=== PATIENT | female | born 1995 | race Caucasian/White ===

== ENCOUNTER → 2017-04-02 | Outpatient (CLI) | payer SELFPAY ==
--- NOTE | 2017-04-02 17:35 | RADIOLOGY REPORT (SQ) ---
EXAM DESCRIPTION: U/S OB 14+ TRNABD 1GES W/O DOP COMPLETED DATE/TIME: 04/02/2017 3:58 pm REASON FOR STUDY: Z34.82 ENCOUNTER FOR SUPRVSN OF NORMAL , SECOND TRIMESTER Z34.82 ENCOUNT ER FOR SUPRVSN OF NORMAL , SECOND TRI COMPARISON: No previous TECHNIQUE: Static and Dynamic grayscale imaging performed of gravid uterus using transabdominal appr oach. Additional selected color Doppler and spectral images recorded. All stored on PACS. LIMITATIONS: None. FINDINGS: EGA: 26 weeks 5 days MAHSA: 07/04/2017 EFW: 913 g PERCENTILE: 58 percentile SEVERO: Largest pocket 4.5 cm PLACENTA: Anterior. GRADE: I PRESENTATION: Cephalic. ANATOMY: HEART RATE: 153 beats per minute. FOUR CHAMBER HEART: Visualized. THREE VESSEL CORD: Yes. CORD INSERTION: Visualized. KIDNEYS AND BLADDER: Visualized. Appear normal. STOMACH: Visualized. Appears normal. SPINE: Not well seen due to size BRAIN AND LATERAL VENTRICLES: Visualized. Appear normal. OTHER: No other significant finding. MATERNAL ADNEXA: Maternal ovaries not visualized. CERVICAL LENGTH: 2.5 cm Closed. OTHER: No other significant finding. IMPRESSION: LIVING INTRAUTERINE . ESTIMATED GESTATIONAL AGE 26 weeks 5 days NO VISUALIZED ANOMALIES. Trimester of : Second trimester - 13 weeks 1 day to 27 weeks 6 days. TECHNICAL DOCUMENTATION: JOB ID: [id number] [employer]- All Rights Reserved
== END ==
LOC: RAD 14:57
PROVIDERS: ATTEND Nurse Practitioner Women's Health
DX: Z34.82 Encounter for supervision of other normal pregnancy, second trimester (principal)
CPT/HCPCS: 76805

== ENCOUNTER 2017-06-13 17:45 | Observation (INO) | payer MEDICAID ==
[2017-06-13 18:26] LABS: APPEARANCE,URINE CLOUDY; BILIRUBIN,URINE NEGATIVE (NEGATIVE); COLOR,URINE AMBER; GLUCOSE, URINE NEGATIVE (NEGATIVE); KETONES,URINE NEGATIVE (NEGATIVE); LEUKOCYTE ESTERASE,URINE LARGE (NEGATIVE); NITRITE,URINE POSITIVE (NEGATIVE); PROTEIN,URINE 30 mg/dL (NEGATIVE); URINE SPECIFIC GRAVITY 1.016
[2017-06-13 18:46] LABS: URINE AMPHETAMINES SCREEN NEGATIVE; URINE BARBITURATES SCREEN NEGATIVE; URINE BENZODIAZEPINES SCREEN NEGATIVE; URINE COCAINE SCREEN NEGATIVE; URINE MARIJUANA (THC) SCREEN NEGATIVE; URINE METHADONE SCREEN NEGATIVE; URINE PHENCYCLIDINE SCREEN NEGATIVE
[2017-06-13] MEDS ORDERED: RINGERS SOLUTION,LACTATED 1,000 ML IV PRN (19:11)
[2017-06-13] MEDS ORDERED: CEFTRIAXONE INJ 1000 MG VIAL ONE (19:24)
[2017-06-13] MEDS ORDERED: CEFTRIAXONE 1 GM/D5W RTU 1 GM/50 ML RTUPB IV ONE (20:00)
[2017-06-13 21:27] LABS: ABSOLUTE LYMPHOCYTES (AUTO) 1.1 10^3/uL (0.5-4.7); BASOPHILS % (AUTO) 0.4 % (0-2); EOSINOPHILS % (AUTO) 0.5 % (0-6); HEMATOCRIT 28.7 % (36.0-47.0); HEMOGLOBIN 9.3 g/dL (12.0-15.5); LYMPHOCYTES % (AUTO) 12.4 % (13-45); MEAN CORPUSCULAR HEMOGLOBIN 23.9 pg (27.0-33.4); MEAN CORPUSCULAR HGB CONC 32.6 g/dL (32.0-36.0); MEAN CORPUSCULAR VOLUME 73 fl (80-97); MONOCYTES % (AUTO) 10.7 % (3-13); PLATELET COUNT 256 10^3/uL (150-450); RED BLOOD COUNT 3.91 10^6/uL (3.72-5.28); RED CELL DISTRIBUTION WIDTH 15.9 % (11.5-14.0); TOTAL CELLS COUNTED % (AUTO) 100 %; WHITE BLOOD COUNT 9.2 10^3/uL (4.0-10.5)
[2017-06-13 23:07] LABS: CHLAM PCR NOT DETECTED (NOT DETECT); GON PCR NOT DETECTED (NOT DETECT)
[2017-06-14 09:17] LABS: ABSOLUTE EOSINOPHILS # (AUTO) 0.1 10^3/uL (0.0-0.6); ABSOLUTE LYMPHOCYTES (AUTO) 1.4 10^3/uL (0.5-4.7); ABSOLUTE NEUT (AUTO) 5.4 10^3/uL (1.7-8.2); BASOPHILS % (AUTO) 0.4 % (0-2); EOSINOPHILS % (AUTO) 0.9 % (0-6); HEMATOCRIT 25.3 % (36.0-47.0); HEMOGLOBIN 8.4 g/dL (12.0-15.5); LYMPHOCYTES % (AUTO) 18.1 % (13-45); MEAN CORPUSCULAR VOLUME 73 fl (80-97); MONOCYTES % (AUTO) 13.1 % (3-13); PLATELET COUNT 197 10^3/uL (150-450); RED BLOOD COUNT 3.48 10^6/uL (3.72-5.28); RED CELL DISTRIBUTION WIDTH 16.1 % (11.5-14.0); SEGMENTED NEUTROPHILS % (AUTO) 67.5 % (42-78); TOTAL CELLS COUNTED % (AUTO) 100 %
[2017-06-14] MEDS ORDERED: CEFTRIAXONE 1 GM/D5W RTU 1 GM/50 ML RTUPB IV SCH (12:00)
[2017-06-14] MEDS ORDERED: ONDANSETRON 4 MG TAB.RAPDIS PO PRN (12:02)
--- NOTE | 2017-06-14 12:06 | L&D Progress Notes ---
PROGRESS NOTES Datetime Report Generated by CPN: 06/14/2017 12:05 PROGRESS NOTE Impression: Labor Vital Signs : Reviewed; Within Normal Limits Comment: Admitted for observation due to labore with suspected complicated UTI. Afebrile - no e/o pyelo. Gram Neg Rods on prelim culture. Will cont Q12 abx today and consider discharge tomorrow. Pt with cervical change by same examiner this am. Irregular ctx. Due to concern for delivery and progression to Pyelo will continue to monitor overnight. VAGINAL EXAM Dilatation: 4 Dilatation: 4 Effacement: 70 Effacement: 50 Station: -1 Station: -2 Contractions: Occasional MEMBRANES Membranes: Intact FETUS A FHR - Baseline: 120 Monitoring: External US Variability: Moderate 6-25bpm Accelerations: 15X15 Decelerations: None FHR Category: Category I Presentation: Vertex SIGNATURE SIGNATURE: [id number] Signature: with User ID: [email or web address]
[2017-06-14] MEDS ORDERED: CEFTRIAXONE INJ 1000 MG VIAL ONE (12:18)
[2017-06-14] MEDS ORDERED: CEFTRIAXONE SODIUM 1,000 MG in DEXTROSE 5%-WATER 50 ML IV ONE (13:00)
[2017-06-14] MEDS ORDERED: ZOLPIDEM TARTRATE 5 MG TABLET PO SCH (22:00)
[2017-06-14] MEDS: CEFTRIAXONE SODIUM 1,000 MG in DEXTROSE 5%-WATER 50 ML IV SCH (22:53)
--- NOTE | 2017-06-15 08:22 | Admission Physical ---
Datetime Report Generated by CPN: 06/15/2017 08:22 Hx Assessment: The History has been Reviewed and is Current Chief Complaint: Signs/Symptoms UTI; Other Chief Complaint Other: Vaginal pressure Indication for Induction: Not Applicable Indication for Induction: , Intrauterine Admit Impression- Other: labor, UTI Admit Plan: Observation/Evaluation Medication Allergies: No (Annotations: Data stored by N on behalf of user) Medication Allergies: No Medication Allergies: No Known Allergies (06/13/2017) Medication Allergies: No Known Allergies (12/08/2012) Latex: No Latex Allergies (Annotations: Data stored by N on behalf of user) Latex: No Latex Allergies Food Allergies: N/A Environmental Allergies: N/A EDC: 07/13/2017 00:00 : 2 Para: 1 Term: 0 : 0 SAB: 0 IAB: 0 Ectopic: 0 Livin Cesareans: 0 VBACs: 0 Multiple Births: 0 Gestational Diabetes: No Rh Sensitization: No Incompetent Cervix: No PAOLO: No Infertility: No ART Treatment: No Uterine Anomaly: No IUGR: No Hx Previous C/S: No Macrosomia: No Hx Loss/Stillborn: No PIH: No Hx : No Placenta Previa/Abruption: No Depression/PP Depression: Yes PTL/PROM: No Post Hemorrhage: No Current Procedures: Ultrasound; NST Obstetrical History Comments: G1- 2013 at 40.3 weeks, epidural G2- Current Alcohol: No Marijuana : No Cocaine: No Other Illicit Drugs: No Cigarettes: Former Smoker. 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 Surgery: No Heart Disease: No Hosp/Surgery: No Autoimmune Disorder: No Anesthetic Complications: No Kidney Disease: No Abnormal Pap Smear: No Neuro/Epilepsy: No Psychiatric Disorders: Yes Other Medical Diseases: No Hepatitis/Liver Disease: No Significant Family History: No Varicosities/Phlebitis: No Trauma/Violence : No Thyroid Dysfunction: No Medical History Comments: Depression, anxiety, OCD Gonorrhea: No Genital Herpes: No Chlamydia: No Tuberculosis: No Syphilis: No Hepatitis: No HIV/AIDS Exposure: No Rash or Viral Illness: No HPV: No General: Normal Neurologic: Normal Heart: Normal Lungs: Normal Abdomen: Normal Genitourinary Exam: Normal Pelvic Type: Adequate Vital Signs: Reviewed; Within Normal Limits Dilatation: 4 Effacement: 50 Station: -2 Contraction Comments: Occasional Membranes: Intact Monitoring: External US FHR- Baseline: 135 Variability: Moderate 6-25bpm Accelerations: 15X15 Decelerations: None FHR Category: Category I Presentation: Vertex Admit Comment: Rocephin 250mg IV x 1 dose given. If no cervical progression, consider d/c in AM on Macrobid for further treatment of UTI. Urine culture pending. IVF running. Will monitor overnight given cervical dilation. Labor and Delivery: None Pain Management: None Feeding Preference: Both Benefit of Breast Feed Discussed: Yes Circumcision: N/A Signature: with User ID: [email or web address]
[2017-06-15] MEDS: CEFTRIAXONE SODIUM 1,000 MG in DEXTROSE 5%-WATER 50 ML IV SCH (09:46)
--- NOTE | 2017-06-15 11:21 | PDOC PROGRESS REPORT ---
Subjective-OB Subjective: Post Delivery Day: 22 year old. Denies any needs at this time feeling alot better, upper back pain, no CVAT, still having irregular uc's, + FM , ready to go home Physical Exam (OB) Vital Signs: Temp Pulse Resp BP Pulse Ox 97.6 F 74 16 111/65 100 06/15/17 09:10 06/15/17 09:10 06/15/17 09:10 06/15/17 09:10 06/15/17 09:10 Intake & Output 06/14/17 06/15/17 06/16/17 06:59 06:59 06:59 Intake Total 490 Balance 490 Weight 55.2 kg - Abdomen Hernia Present: No - Genitourinary [place] exam: Other - VE = 3-4/post/vtx/-1 Objective-Diagnostic Laboratory: 06/14/17 08:50 06/13/17 21:00 Vaginal/Anorectal Group B Streptococcus Culture - Final GROUP B BETA HEMOLYTIC STREPTOCOCCUS RECOVERED 06/13/17 17:56 Clean Catch Midstream Urine Culture - Final Klebsiella Pneumoniae Assessment and Plan(PN) - Assessment and Plan (1) Urinary tract infection affecting Is this a current diagnosis for this admission?: Yes (2) labor in third trimester Qualifiers: labor delivery status: without delivery Qualified Code(s): O60.03 - labor without delivery, third trimester Is this a current diagnosis for this admission?: Yes (3) Anemia affecting Qualifiers: Trimester: unspecified trimester Qualified Code(s): O99.019 - Anemia complicating , unspecified trimester Is this a current diagnosis for this admission?: Yes - Time Spent with Patient Time with patient: Less than 15 minutes Medications reviewed and adjusted accordingly: Yes - Disposition Anticipated Discharge: Home Within: Other - home today
--- NOTE | 2017-06-15 11:24 | PDOC DISCHARGE SUMMARY ---
Final Diagnosis Discharge Date: 06/15/17 - Final Diagnosis (1) Urinary tract infection affecting Is this a current diagnosis for this admission?: Yes (3) Anemia affecting Is this a current diagnosis for this admission?: Yes Discharge Data - Discharge Medication Home Medications: Vit/Iron Fumarate/FA [ Plus Tablet] 1 tab PO DAILY 04/03/13 Guaifenesin [Mucinex] 100 mg PO PRN PRN 06/13/17 - Diagnosis Test Laboratory: Temp Pulse Resp BP Pulse Ox 97.6 F 74 16 111/65 100 06/15/17 09:10 06/15/17 09:10 06/15/17 09:10 06/15/17 09:10 06/15/17 09:10 06/13/17 06/13/17 06/14/17 17:56 21:13 08:50 RBC 3.91 3.48 L Hgb 9.3 L 8.4 L Hct 28.7 L 25.3 L Urine Opiates Screen NEGATIVE - Discharge information/Instructions Discharge Activity: Activity As Tolerated Discharge Diet: As Tolerated, Regular Disposition: HOME, SELF-CARE Follow up with: [facility] in: 1, Days - Keep appt at [facility] on Thursday, Rx for Macrobid 100 BID x 7 days, urine culture sensitive to Macrobid
[2017-06-15 12:53] VITALS: BP 109/52
== END 2017-06-15 14:10 | disposition home or self-care (01) ==
LOC: LC 17:45 → LR 20:55 → OBSVTOIN 06-14 12:09 → INTOOBSV 06-14 12:09 → 2N 06-14 12:55
PROVIDERS: ADMIT Obstetrics & Gynecology; ATTEND Obstetrics & Gynecology
PROC: 4A0HXCZ Measurement of Products of Conception, Cardiac Rate, External Approach (ICD-10-PCS; principal; 2017-06-14)
DX: O60.03 Preterm labor without delivery, third trimester (principal); O23.43 Unspecified infection of urinary tract in pregnancy, third trimester; B96.1 Klebsiella pneumoniae [K. pneumoniae] as the cause of diseases classified elsewhere; O99.013 Anemia complicating pregnancy, third trimester; Z87.891 Personal history of nicotine dependence; Z3A.35 35 weeks gestation of pregnancy
CPT/HCPCS: 59025 ×2; 36415 ×2; 87086; 85025 ×2; 87088; 81001; 87081; 87186; 80307; 87491; 87591; 94799; G0378 ×2; G0379; J0696 ×3

== ENCOUNTER 2017-06-18 17:07 | Outpatient (CLI) | payer MEDICAID ==
--- NOTE | 2017-06-18 17:11 | Non Stress Test Report ---
Non Stress Test Datetime Report Generated by CPN: 06/18/2017 17:11 DEMOGRAPHIC EGA NST: 35.6 EGA NST: 35.5 INDICATION Indication for Study: Ordered by Provider Indication for Study: Ordered by Provider MONITORING Monitor Explained: Monitor Explained; Test Explained; Patient Verbalized Understanding Monitor Explained: Monitor Explained; Test Explained; Patient Verbalized Understanding Time on Monitor: 06/14/2017 11:14 Time on Monitor: 06/13/2017 18:07 Time off Monitor: 06/14/2017 11:49 Time off Monitor: 06/13/2017 19:28 NST Duration: 35 NST Duration: 81 NST INTERVENTIONS NST Interventions: PO Hydration; Reposition Patient NST Interventions: PO Hydration; Reposition Patient Physician Notified NST: Dr. Kaufman Physician Notified NST: Dr. Wetzel BABY A: [id number] BABY A Movement : Present Movement : Present Contraction Frequency : Irregular with irritability Contraction Frequency : irregular with irritability FHR Baseline : 125 FHR Baseline : 125 Accelerations : 15X15 Accelerations : 15X15 Decelerations : None Decelerations : None Variability : Moderate 6-25bpm Variability : Moderate 6-25bpm NST Review: Meets Criteria for Reactive NST NST Review: Meets Criteria for Reactive NST NST Review and Verified By : Tiffanie Martinez RN NST Review and Verified By : Tiffanie Martinez RN NST Results: Reactive NST Results: Reactive NST REPORT Report Trigger: Send Report
--- NOTE | 2017-06-18 18:06 | Non Stress Test Report ---
Non Stress Test Datetime Report Generated by CPN: 06/18/2017 18:06 DEMOGRAPHIC EGA NST: 36.3 INDICATION Indication for Study: Decreased Movement; Ordered by Provider Indication for Study (NST) Other: LC MONITORING Monitor Explained: Monitor Explained; Test Explained; Patient Verbalized Understanding Time on Monitor: 06/18/2017 17:43 Time off Monitor: 06/18/2017 18:03 NST Duration: 20 NST INTERVENTIONS NST Interventions: PO Hydration; Reposition Patient Physician Notified NST: Dr. Altaf BABY A Movement : Present Contraction Frequency : irr FHR Baseline : 125 Accelerations : 15X15 Decelerations : None Variability : Moderate 6-25bpm NST Review: Meets Criteria for Reactive NST NST Review and Verified By : Aura Arreola RN NST Results: Reactive NST REPORT Report Trigger: Send Report
[2017-06-18 18:47] LABS: APPEARANCE,URINE SLIGHTLY-CLOUDY; BILIRUBIN,URINE NEGATIVE (NEGATIVE); COLOR,URINE YELLOW; GLUCOSE, URINE NEGATIVE (NEGATIVE); KETONES,URINE NEGATIVE (NEGATIVE); LEUKOCYTE ESTERASE,URINE NEGATIVE (NEGATIVE); NITRITE,URINE NEGATIVE (NEGATIVE); PROTEIN,URINE NEGATIVE (NEGATIVE); URINE SPECIFIC GRAVITY 1.017; UROBILINOGEN,URINE NEGATIVE mg/dL (<2.0)
[2017-06-18 19:05] LABS: URINE AMPHETAMINES SCREEN NEGATIVE; URINE BARBITURATES SCREEN NEGATIVE; URINE BENZODIAZEPINES SCREEN NEGATIVE; URINE COCAINE SCREEN NEGATIVE; URINE MARIJUANA (THC) SCREEN NEGATIVE; URINE METHADONE SCREEN NEGATIVE; URINE PHENCYCLIDINE SCREEN NEGATIVE
== END 2017-06-18 18:15 | disposition home or self-care (01) ==
LOC: LC 17:07
PROVIDERS: ATTEND Obstetrics & Gynecology
PROC: 4A1HXCZ Monitoring of Products of Conception, Cardiac Rate, External Approach (ICD-10-PCS; principal; 2017-06-18)
DX: O36.8130 Decreased fetal movements, third trimester, not applicable or unspecified (principal); Z3A.36 36 weeks gestation of pregnancy
CPT/HCPCS: 59025; 80307; 81001

== ENCOUNTER 2017-06-28 17:38 | Inpatient (IN) | payer MEDICAID ==
[2017-06-28] MEDS ORDERED: RINGERS SOLUTION,LACTATED 1,000 ML IV PRN (18:20)
[2017-06-28 18:23] LABS: APPEARANCE,URINE SLIGHTLY-CLOUDY; BILIRUBIN,URINE NEGATIVE (NEGATIVE); COLOR,URINE YELLOW; GLUCOSE, URINE NEGATIVE (NEGATIVE); KETONES,URINE 20 mg/dL (NEGATIVE); LEUKOCYTE ESTERASE,URINE MODERATE (NEGATIVE); NITRITE,URINE NEGATIVE (NEGATIVE); PROTEIN,URINE NEGATIVE (NEGATIVE); URINE SPECIFIC GRAVITY 1.014; UROBILINOGEN,URINE NEGATIVE mg/dL (<2.0)
[2017-06-28] MEDS ORDERED: MISOPROSTOL 0.2 MG TABLET ONE (18:25)
[2017-06-28] MEDS ORDERED: PENICILLIN G-K 5 MILLION UNIT VIAL ONE (18:25)
[2017-06-28] MEDS ORDERED: FENTANYL/BUPIVACAINE/NS/PF 200 MCG/100 ML RTUINJ EPI ONE (18:26)
[2017-06-28] MEDS ORDERED: OXYTOCIN/NORMAL SALINE 20 UNIT/1,000 ML RTUINJ ONE (18:26)
[2017-06-28] MEDS ORDERED: EPHEDRINE SULFATE INJ 50 MG/1 ML AMPULE ONE (18:26)
[2017-06-28] MEDS ORDERED: LIDOCAINE 1% INJ-PF (10 MG/ML) 30 ML SDV ONE (18:26)
[2017-06-28] MEDS ORDERED: BUPIVACAINE HCL 0.25 % INJ/PF (2.5 MG/1 ML) 30 ML VIAL ONE (18:26)
[2017-06-28 18:33] LABS: ABSOLUTE BASOPHILS # (AUTO) 0.1 10^3/uL (0.0-0.2); ABSOLUTE LYMPHOCYTES (AUTO) 1.1 10^3/uL (0.5-4.7); ABSOLUTE MONOCYTES (AUTO) 0.8 10^3/uL (0.1-1.4); ABSOLUTE NEUT (AUTO) 10.5 10^3/uL (1.7-8.2); BASOPHILS % (AUTO) 0.5 % (0-2); EOSINOPHILS % (AUTO) 0.4 % (0-6); HEMATOCRIT 31.8 % (36.0-47.0); HEMOGLOBIN 9.9 g/dL (12.0-15.5); MEAN CORPUSCULAR HEMOGLOBIN 22.3 pg (27.0-33.4); MEAN CORPUSCULAR HGB CONC 31.3 g/dL (32.0-36.0); MEAN CORPUSCULAR VOLUME 71 fl (80-97); MONOCYTES % (AUTO) 6.3 % (3-13); PLATELET COUNT 288 10^3/uL (150-450); RED BLOOD COUNT 4.46 10^6/uL (3.72-5.28); RED CELL DISTRIBUTION WIDTH 16.7 % (11.5-14.0); SEGMENTED NEUTROPHILS % (AUTO) 83.8 % (42-78); TOTAL CELLS COUNTED % (AUTO) 100 %; WHITE BLOOD COUNT 12.5 10^3/uL (4.0-10.5)
[2017-06-28 18:53] LABS: URINE AMPHETAMINES SCREEN NEGATIVE; URINE BARBITURATES SCREEN NEGATIVE; URINE BENZODIAZEPINES SCREEN NEGATIVE; URINE COCAINE SCREEN NEGATIVE; URINE MARIJUANA (THC) SCREEN NEGATIVE; URINE METHADONE SCREEN NEGATIVE; URINE PHENCYCLIDINE SCREEN NEGATIVE
[2017-06-28] MEDS ORDERED: RINGERS SOLUTION,LACTATED 1,000 ML IV ONE (19:00)
[2017-06-28] MEDS ORDERED: PENICILLIN G POTASSIUM 5,000,000 UNIT in DEXTROSE 5%-WATER 100 ML IV ONE (19:00)
[2017-06-28] MEDS ORDERED: PSEUDOEPHEDRINE HCL 30 MG TABLET PO PRN (21:34)
[2017-06-28] MEDS ORDERED: DIBUCAINE 1% OINTMENT 28 GM TP PRN (21:34)
[2017-06-28] MEDS ORDERED: ZOLPIDEM TARTRATE 5 MG TABLET PO PRN (21:34)
[2017-06-28] MEDS ORDERED: ACETAMINOPHEN 650 MG SUPP.RECT PR PRN (21:34)
[2017-06-28] MEDS ORDERED: DIPH/PERTUSS(ACELL)/TETANUS VAC/PF 0.5 ML SYR (>=10YO) IM PRN (21:34)
[2017-06-28] MEDS ORDERED: NA PHOS,M-B/NA PHOS,DI-BA (ADULT) 133 ML ENEMA PR PRN (21:34)
[2017-06-28] MEDS ORDERED: BENZOCAINE/MENTHOL AEROSOL SPRAY 56 ML TOP PRN (21:34)
[2017-06-28] MEDS ORDERED: GLYCERIN/WITCH HAZEL LEAF 1 EACH MED..PAD TP PRN (21:34)
[2017-06-28] MEDS ORDERED: OXYTOCIN/NORMAL SALINE 20 UNIT/1,000 ML RTUINJ IV PRN (21:34)
[2017-06-28] MEDS ORDERED: PROMETHAZINE HCL 25 MG SUPP.RECT PR PRN (21:34)
[2017-06-28] MEDS ORDERED: PROMETHAZINE HCL INJ 25 MG/1 ML VIAL IV PRN (21:34)
[2017-06-28] MEDS ORDERED: PROMETHAZINE HCL 25 MG TABLET PO PRN (21:34)
[2017-06-28] MEDS ORDERED: MAGNESIUM HYDROXIDE SUSP 30 ML UDCUP PO PRN (21:34)
[2017-06-28] MEDS ORDERED: ACETAMINOPHEN WITH CODEINE #3 TABLET PO PRN ×2 (21:34)
[2017-06-28] MEDS ORDERED: DIPHENHYDRAMINE HCL 25 MG CAPSULE PO PRN (21:34)
[2017-06-28] MEDS ORDERED: MEASLES,MUMPS&RUBELLA VACC/PF 0.5 ML VIAL SUBCUT PRN (21:34)
--- NOTE | 2017-06-28 22:19 | Delivery Summary ---
Del Sum A-C Datetime Report Generated by CPN: 06/28/2017 22:19 DELIVERY PERSONNEL DELIVERY PERSONNEL: [id number] Delivery Doctor:: Angeles Solitario MD Labor and Delivery Nurse:: Rosie Sanches RN Labor and Delivery Nurse:: Katia Rodriguez RN Measuring Machine Operator/DIFFERENTIAL REPAIRER: Serene Terryzgerald, ST MATERNAL INFORMATION Delivery Anesthesia: Epidural Medications After Delivery: Pitocin Bolus-Please Comment; Pitocin Drip 20 Units/1000ml NSS Meds After Delivery Comment: NS with Pitocin 20 units/liter ivf bolus Estimated Blood Loss (ml): 150 Maternal Complications: None LABOR SUMMARY EDC: 07/13/2017 00:00 No. Babies in Womb: 1 Attempted: No Labor Anesthesia: Epidural LABOR INFORMATION Reason for Induction: Not Applicable Onset of Labor: 06/28/2017 08:00 Complete Dilatation: 06/28/2017 20:57 Oxytocin: N/A Group B Beta Strep: positive Antibiotics # of Doses: 1 Antibiotics Time of Last Dose: PCN Name of Antibiotic Given: 1807 Steroids Given: None Reason Steroids Not Administered: Not Applicable MEMBRANES Membranes Rupture Method: Spontaneous Rupture of Membranes: 06/28/2017 19:44 Length of Rupture (hr): 1.50 Amniotic Fluid Color: Clear Amniotic Fluid Amount: Moderate Amniotic Fluid Odor: Normal STAGES OF LABOR Stage 1 hr: 12 Stage 1 min: 57 Stage 2 hr: 0 Stage 2 min: 17 Stage 3 hr: 0 Stage 3 min: 1 Total Time in Labor hr: 13 Total Time in Labor min: 15 VAGINAL DELIVERY Episiotomy: None Laceration #1: None Laceration Extension #1: N/A Laceration Repair: Not Applicable Sponge Count Correct: N/A CSECTION DELIVERY Primary Indication: N/A Secondary Indication: N/A CSection Incidence: N/A Labor: N/A Elective: N/A BABY A INFORMATION Delivery Date/Time: 06/28/2017 21:14 Method of Delivery: Vaginal Born in Route : No : N/A Forceps: N/A Vacuum Extraction: N/A Shoulder Dystocia : No PRESENTATION/POSITION BABY A Presentation: Cephalic Cephalic Presentation: Vertex Vertex Position: Left Occipital Anterior left compoud hand Breech Presentation: N/A PLACENTA INFORMATION BABY A Placenta Delivery Time : 06/28/2017 21:15 Placenta Method of Delivery: Spontaneous Placenta Status: Delivered SCORES BABY A Heart Rate 1 min: >100 bpm Resp Effort 1 min: Good Cry Reflex Irritability 1 min: Cough or Sneeze or Pulls Away Muscle Tone 1 min: Active Motion Color 1 min: Body [place], Extremities Blue Resuscitation Effort 1 min: Tactile Stimulation SCORE 1 MIN: 9 Heart Rate 5 min: >100 bpm Resp Effort 5 min: Good Cry Reflex Irritability 5 min: Cough or Sneeze or Pulls Away Muscle Tone 5 min: Active Motion Color 5 min: Body [place], Extremities Blue Resuscitation Effort 5 min: Tactile Stimulation SCORE 5 MIN: 9 INFANT INFORMATION BABY A Gestational Age at Delivery: 37.6 Gestational Status: Early Term- 37- 38.6 Weeks Outcome : Liveborn Infant Condition : Stable Sex: Female IDENTIFICATION BABY A Infant Verification Date/Time: 06/28/2017 21:55 ID Band Number: [id number] Mother's Name Verified: Yes RN Verifying Infant: Nury Thompson RN/ T Sanches RN WEIGHT/LENGTH BABY A Birthweight (gm): 3300 Weight (lb): 7 Infant Weight (oz): 4 Infant Length (in): 19.75 Infant Length (cm): 50.17 CORD INFORMATION BABY A No. Cord Vessels: 3 Nuchal Cord : N/A Cord Blood Taken: Yes-For Storage (Mom's Blood type +) Infant Suction: Mouth; Nose ASSESSMENT BABY A Complications: None Physical Findings at Delivery: Within Normal Limits Respirations: Appears Normal Skin to Skin: Yes Skin to Skin Time (min): 45 Instrument Checker/ALS Called : No Care By: michaelle cailin Transferred To: Remains with Mother BABY B INFORMATION : N/A SIGNATURES Signature: with User ID: [email or web address]
--- NOTE | 2017-06-28 23:18 | Admission Physical ---
Datetime Report Generated by CPN: 06/28/2017 23:18 CURRENT ADMISSION Hx Assessment: The History has been Reviewed and is Current Chief Complaint: Uterine Contractions Chief Complaint: Uterine Contractions Chief Complaint: Signs/Symptoms UTI; Other Chief Complaint Other: Vaginal pressure Indication for Induction: Not Applicable Indication for Induction: Not Applicable Indication for Induction: Not Applicable Indication for Induction: Term, Intrauterine ; Active Labor Indication for Induction: Term, Intrauterine ; Active Labor Indication for Induction: , Intrauterine Admit Impression- Other: labor, UTI Admit Plan: Admit to Unit; Initiate Labor Induction Protocol Admit Plan: Admit to Unit; Initiate Labor Protocol Admit Plan: Observation/Evaluation ALLERGIES Medication Allergies: No (Annotations: Data stored by CPN on behalf of user) Medication Allergies: No Medication Allergies: No Known Allergies (06/18/2017) Medication Allergies: No Known Allergies (06/13/2017) Medication Allergies: No Known Allergies (12/08/2012) Latex: No Latex Allergies (Annotations: Data stored by CPN on behalf of user) Latex: No Latex Allergies Food Allergies: N/A Environmental Allergies: N/A OBSTETRICAL HISTORY EDC: 07/13/2017 00:00 : 2 Para: 1 Term: 0 : 0 SAB: 0 IAB: 0 Ectopic: 0 Livin Cesareans: 0 VBACs: 0 Multiple Births: 0 Gestational Diabetes: No Rh Sensitization: No Incompetent Cervix: No PAOLO: No Infertility: No ART Treatment: No Uterine Anomaly: No IUGR: No Hx Previous C/S: No Macrosomia: No Hx Loss/Stillborn: No PIH: No Hx : No Placenta Previa/Abruption: No Depression/PP Depression: Yes PTL/PROM: No Post Hemorrhage: No Current Procedures: Ultrasound; NST Obstetrical History Comments: G1- 2013 at 40.3 weeks, epidural G2- Current SEE RECORDS Alcohol: No Marijuana : No Cocaine: No Other Illicit Drugs: No Cigarettes: Former Smoker. [id number] MEDICAL HISTORY Diabetes: No Blood Transfusion: No Pulmonary Disease (Asthma, TB): No Breast Disease: No Hypertension: No Rn Supplemental Surgery: No Heart Disease: No Hosp/Surgery: No Autoimmune Disorder: No Anesthetic Complications: No Kidney Disease: No Abnormal Pap Smear: No Neuro/Epilepsy: No Psychiatric Disorders: Yes Other Medical Diseases: No Hepatitis/Liver Disease: No Significant Family History: No Varicosities/Phlebitis: No Trauma/Violence : No Thyroid Dysfunction: No Medical History Comments: Depression, anxiety, OCD INFECTIOUS HISTORY Gonorrhea: No Genital Herpes: No Chlamydia: No Tuberculosis: No Syphilis: No Hepatitis: No HIV/AIDS Exposure: No Rash or Viral Illness: No HPV: No PHYSICAL EXAM General: Normal General: Normal General: Normal HEENT: Normal HEENT: Normal Neurologic: Normal Neurologic: Normal Neurologic: Normal Thyroid: Normal Thyroid: Normal Heart: Normal Heart: Normal Heart: Normal Lungs: Normal Lungs: Normal Lungs: Normal Breast: Normal Breast: Normal Back: Normal Back: Normal Abdomen: Normal Abdomen: Normal Abdomen: Normal Genitourinary Exam: Normal Genitourinary Exam: Normal Genitourinary Exam: Normal Extremities: Normal Extremities: Normal DTRs: Normal DTRs: Normal Pelvic Type: Adequate Pelvic Type: Adequate Pelvic Type: Adequate Vital Signs: Reviewed Vital Signs: Reviewed Vital Signs: Reviewed; Within Normal Limits VAGINAL EXAM Dilatation: 6 Dilatation: 4 Dilatation: 4 Effacement: 80 Effacement: 70 Effacement: 50 Station: -1 Station: -1 Station: -2 Contraction Comments: Occasional MEMBRANES Pooling: Negative Membranes: Intact Membranes: Intact FETUS A EGA: 37.6 EGA: 35.6 EGA: 35.5 Monitoring: External US Monitoring: External US FHR- Baseline: 145 FHR- Baseline: 135 Variability: Moderate 6-25bpm Variability: Moderate 6-25bpm Accelerations: 15X15 Accelerations: 15X15 Decelerations: None Decelerations: None FHR Category: Category I FHR Category: Category I Estimated Weight (gm): 3500 Presentation: Vertex Presentation: Vertex Admit Comment: Rocephin 250mg IV x 1 dose given. If no cervical progression, consider d/c in AM on Macrobid for further treatment of UTI. Urine culture pending. IVF running. Will monitor overnight given cervical dilation. PLANS FOR LABOR AND DELIVERY Labor and Delivery: None Pain Management: Epidural Feeding Preference: Formula Benefit of Breast Feed Discussed: Yes Circumcision: N/A INFORMED CONSENT Signature: with User ID: Jo Signature: with User ID: Vince : with User ID: Vince
[2017-06-29] MEDS: PENICILLIN G POTASSIUM 2,500,000 UNIT in DEXTROSE 5%-WATER 50 ML IV SCH ×2 (00:19→06:02)
[2017-06-29] MEDS: FAMOTIDINE 20 MG TABLET PO SCH ×3 (00:19→21:27)
[2017-06-29] MEDS: IBUPROFEN 800 MG TABLET PO SCH ×4 (00:19→21:27)
[2017-06-29 07:58] LABS: HEMATOCRIT 28.1 % (36.0-47.0); HEMOGLOBIN 9.3 g/dL (12.0-15.5); MEAN CORPUSCULAR HEMOGLOBIN 23.1 pg (27.0-33.4); MEAN CORPUSCULAR VOLUME 70 fl (80-97); PLATELET COUNT 296 10^3/uL (150-450); RED BLOOD COUNT 4.01 10^6/uL (3.72-5.28); RED CELL DISTRIBUTION WIDTH 16.6 % (11.5-14.0); WHITE BLOOD COUNT 15.6 10^3/uL (4.0-10.5)
--- NOTE | 2017-06-29 09:06 | PDOC PROGRESS REPORT ---
Subjective-OB Subjective: Post Delivery Day:1 22 year old. Denies any needs at this time, states lochia is stable, pain well controlled, voiding without difficulty. Physical Exam (OB) Vital Signs: Temp Pulse Resp BP Pulse Ox 98.4 F 82 14 108/69 99 06/29/17 07:56 06/29/17 07:56 06/29/17 07:56 06/29/17 07:56 06/29/17 07:56 Intake & Output 06/28/17 06/29/17 06/30/17 06:59 06:59 06:59 Weight 56.1 kg - Lochia Lochia Amount: Small 10-25 ml Lochia Color: Rubra/Red - Abdomen Description: Soft, Round Hernia Present: No Fundal Description: Firm, Midline Fundal Height: u/u - u/2 Objective-Diagnostic Laboratory: 06/29/17 07:41 06/28/17 06/28/17 06/28/17 17:49 18:16 18:16 WBC 12.5 H RBC 4.46 Hgb 9.9 L Hct 31.8 L MCV 71 L MCH 22.3 L MCHC 31.3 L RDW 16.7 H Plt Count 288 Seg Neutrophils % 83.8 H Lymphocytes % 9.0 L Monocytes % 6.3 Eosinophils % 0.4 Basophils % 0.5 Absolute Neutrophils 10.5 H Absolute Lymphocytes 1.1 Absolute Monocytes 0.8 Absolute Eosinophils 0.0 Absolute Basophils 0.1 Urine Color YELLOW Urine Appearance SLIGHTLY-CLOUDY Urine pH 7.0 Ur Specific [place] 1.014 Urine Protein NEGATIVE Urine Glucose (UA) NEGATIVE Urine Ketones 20 H Urine Blood NEGATIVE Urine Nitrite NEGATIVE Ur Leukocyte Esterase MODERATE H Blood Type B POSITIVE Antibody Screen NEGATIVE 06/29/17 07:41 WBC 15.6 H RBC 4.01 Hgb 9.3 L Hct 28.1 L MCV 70 L MCH 23.1 L MCHC 33.0 RDW 16.6 H Plt Count 296 Seg Neutrophils % Lymphocytes % Monocytes % Eosinophils % Basophils % Absolute Neutrophils Absolute Lymphocytes Absolute Monocytes Absolute Eosinophils Absolute Basophils Urine Color Urine Appearance Urine pH Ur Specific [place] Urine Protein Urine Glucose (UA) Urine Ketones Urine Blood Urine Nitrite Ur Leukocyte Esterase Blood Type Antibody Screen Assessment and Plan(PN) - Assessment and Plan (1) Vaginal delivery Is this a current diagnosis for this admission?: Yes Plan: routine pp care (2) Anemia affecting Qualifiers: Trimester: third trimester Qualified Code(s): O99.013 - Anemia complicating , third trimester Is this a current diagnosis for this admission?: Yes Plan: ferrous sulfate increase dietary iron - Time Spent with Patient Time with patient: Less than 15 minutes Critical Time spent with patient: Less than 15 minutes Medications reviewed and adjusted accordingly: Yes - Disposition Anticipated Discharge: Home Within: within 24 hours
[2017-06-29] MEDS: PRENATAL VITAMIN W DHA CAPSULE PO SCH (10:15)
[2017-06-29] MEDS: FERROUS SULFATE 325 MG TABLET PO SCH ×2 (10:15→17:50)
[2017-06-29] MEDS: DOCUSATE SODIUM 100 MG CAPSULE PO SCH ×2 (10:15→17:50)
[2017-06-29] MEDS: SENNOSIDES/DOCUSATE 8.6-50 MG 1 EACH TABLET PO SCH (10:16)
[2017-06-30] MEDS: IBUPROFEN 800 MG TABLET PO SCH ×2 (05:21→13:59)
[2017-06-30] MEDS ORDERED: ACETAMINOPHEN 325 MG TABLET ONE (09:10)
[2017-06-30] MEDS ORDERED: ACETAMINOPHEN 325 MG TABLET PO PRN (09:13)
[2017-06-30] MEDS: FERROUS SULFATE 325 MG TABLET PO SCH ×2 (09:16→17:16)
[2017-06-30] MEDS: FAMOTIDINE 20 MG TABLET PO SCH (09:16)
[2017-06-30] MEDS: SENNOSIDES/DOCUSATE 8.6-50 MG 1 EACH TABLET PO SCH (09:16)
[2017-06-30] MEDS: DOCUSATE SODIUM 100 MG CAPSULE PO SCH ×2 (09:16→17:16)
[2017-06-30] MEDS: PRENATAL VITAMIN W DHA CAPSULE PO SCH (09:16)
[2017-06-30 21:08] VITALS: BP 110/68
== END 2017-06-30 22:25 | disposition home or self-care (01) | DRG 774 ==
LOC: LC 17:38 → LR 18:08 → 2S 23:16
PROVIDERS: ADMIT Obstetrics & Gynecology; ATTEND Obstetrics & Gynecology
PROC: 10E0XZZ Delivery of Products of Conception, External Approach (ICD-10-PCS; principal; 2017-06-28)
DX: O99.824 Streptococcus B carrier state complicating childbirth (principal); O75.3 Other infection during labor; N39.0 Urinary tract infection, site not specified; O99.344 Other mental disorders complicating childbirth; F41.8 Other specified anxiety disorders; O32.2XX0 Maternal care for transverse and oblique lie, not applicable or unspecified; O90.81 Anemia of the puerperium; D64.9 Anemia, unspecified; Z3A.37 37 weeks gestation of pregnancy; Z37.0 Single live birth
CPT/HCPCS: 36415; 80307; 81005; 85025; 85027; 86592; 86850; 86900; 86901; 90715; J2540; J2590; J3490

== ENCOUNTER 2017-09-18 14:40 | Emergency (ER) | payer MEDICAID ==
[2017-09-18] MEDS ORDERED: LIDOCAINE 1% INJ-PF (10 MG/ML) 30 ML SDV INJ ONE (15:11)
[2017-09-18] MEDS ORDERED: ACETAMINOPHEN 325 MG TABLET PO ONE (15:11)
[2017-09-18] MEDS ORDERED: LIDOCAINE 4%/TETRACAINE 0.5%/EPI 0.18% 5 ML TOPICAL SOLN TOP ONE (15:11)
--- NOTE | 2017-09-18 15:12 | ER Document Report ---
HPI - HPI Pain Level: 5 Context: Patient is a 22-year-old female presents emergency department with a chief complaint of head injury. Patient states she was putting laundry away when she hit her head on the cabinets. She denies any LOC. She admits to headache and initial dizziness which is since resolved. She denies any vomiting, altered mental status, lethargy or confusion. Patient is not on any blood thinners but admits that she is following with the doctor regarding her concern for easy bruising. She denies any blood dyscrasias in her family that she is aware of. - CONSTITUTIONAL Constitutional: DENIES: Fever, Chills - EENT EENT: DENIES: Sore Throat, Ear Pain, Eye problems - NEURO Neurology: DENIES: Headache, Weakness, Vision blurred, Dizzinesss / Vertigo - CARDIOVASCULAR Cardiovascular: DENIES: Chest pain - RESPIRATORY Respiratory: DENIES: Trouble Breathing, Coughing - GASTROINTESTINAL Gastrointestinal: DENIES: Abdominal Pain, Black / Bloody Stools - URINARY Urinary: DENIES: Dysuria, Urgency, Frequency - REPRODUCTIVE Reproductive: REPORTS: : - MUSCULOSKELETAL Musculoskeletal: DENIES: Extremity pain Past Medical History - Social History Smoking Status: Unknown if Ever Smoked Chew tobacco use (# tins/day): No Frequency of alcohol use: None Drug Abuse: None Family History: Reviewed & Not Pertinent Patient has suicidal ideation: No Patient has homicidal ideation: No Renal/ Medical History: Denies: Hx Peritoneal Dialysis - Immunizations Immunizations up to date: Yes Hx Diphtheria, Pertussis, Tetanus Vaccination: Yes Vertical Provider Document - CONSTITUTIONAL Agree With Documented VS: Yes Notes: PHYSICAL EXAM GENERAL: Alert, interacts well. HEAD: Normocephalic, 2.5 cm laceration along the lateral hairline on the right part of her forehead without active bleeding. EYES: Pupils equal, round, and reactive to light. Extraocular movements intact. ENT: Oral mucosa moist, tongue midline. NECK: Full range of motion. Supple. Trachea midline. EXTREMITIES: Moves all 4 extremities spontaneously. No edema, radial and dorsalis pedis pulses 2/4 bilaterally. No cyanosis. NEUROLOGICAL: Alert and oriented x4. Normal speech. PSYCH: Normal affect, normal mood. SKIN: Warm, dry, normal turgor. Noted ecchymosis on the back of her left thigh. No focal tenderness or deformity. - INFECTION CONTROL TRAVEL OUTSIDE OF THE [place] IN LAST 30 DAYS: No Course - Re-evaluation Re-evalutation: 09/18/17 16:32 Patient is a 22-year-old female is hemodynamically stable, no acute distress and afebrile. Presentation of head trauma in an otherwise well-appearing patient. No focal neurologic deficits on exam, no evidence of basilar skull fracture on exam without evidence of hemotympanum, raccoon eyes, or periauricular hematoma. No papilledema. Patient is not on anticoagulation. GCS is 15. No loss of consciousness. No episodes of vomiting. Patient is therefore negative via Crisp head CT criteria and CT imaging will not be obtained at this time. Wound was irrigated and closed primarily at the bedside. Patient tolerated procedure well. Will follow up with her primary care this week for suture removal and blood work results. - Vital Signs Vital signs: Temp Pulse Resp BP Pulse Ox 98.3 F 80 16 119/72 98 09/18/17 14:44 09/18/17 14:44 09/18/17 14:44 09/18/17 14:44 09/18/17 14:44 - Laboratory Result Diagrams: 09/18/17 15:40 Procedures - Laceration/Wound Repair Right Face Wound length (cm): 2.5 Wound's Depth, Shape: Linear Laceration pre-procedure: Sterile PPE donned, Betadine prep applied, Sterile drapes applied Anesthetic type: 1% Lidocaine Volume Anesthetic (mLs): 5 Wound explored: Clean Irrigated w/ Saline (mLs): 50 Wound Repaired With: Sutures Suture Size/Type: 5:0, Prolene Number of Sutures: 4 Layer Closure?: No Post-procedure wound care: Sterile dressing applied Discharge - Discharge Clinical Impression: Laceration Head injury Qualifiers: Encounter type: initial encounter Qualified Code(s): S09.90XA - Unspecified injury of head, initial encounter Condition: Good Disposition: HOME, SELF-CARE Additional Instructions: LACERATION CARE: Your laceration has been sutured to keep the skin edges aligned during healing. The time of suture removal depends on the nature and location of your cut. Please follow the care instructions the doctor has outlined for you and return for further care, according to the schedule you've been given. Keep the wound and dressing clean. Unless you were told otherwise, you may shower daily, blotting the wound dry with a clean, unused towel. At other times, If the dressing gets wet or blood soaked, remove it and blot the wound dry, then reapply a new dressing. Unless you were instructed otherwise, dressings should be changed at least daily. If any signs of infection occur (swelling, redness, drainage, increasing tenderness, red streaks, tender lumps in the armpit or groin above the laceration, or fever), see the doctor immediately. SOAP CLEANSING: Gently wash the wound daily using a mild soap (like Ivory, Phisoderm, Neutrogena). Use warm water, rubbing gently until all debris, ooze, and crusting have been washed from the wound. Allow to dry briefly (about 10 minutes) after cleaning. Repeat this cleansing at least three times a day for the first two days and then once or twice a day. ANTIBIOTIC OINTMENT PROTECTION: Your wounds are such that dressing them is not practical or optional. After cleansing, you should apply a thin coating of antibiotic ointment ( Bacitracin, not Neosporin) to the wounds at least three times daily. This lessens infection risk, and may decrease the amount of scarring. Use a q-tip or dull butter knife, not your finger, to apply this ointment. Any debris or ooze which builds up in the ointment should be gently rubbed off with a sterile gauze pad. Harder crusting may need to be gently scrubbed off with a clean wash cloth with soap and warm water, perhaps applying a warm, wet wash cloth to the wound for ten minutes first. Development of redness, severe itching, or blistering may mean allergy to the ointment. See the doctor. FOLLOW-UP CARE: Your sutures should be removed in 5-7 days. To facilitate a timely removal of your sutures, you may return to the Emergency Department at [facility]. You do not need to call for an appointment, but the best time to come in for suture removal is early in the morning. If you have been referred to another physician for follow-up care, call that physicians office for an appointment as you were instructed. If you experience a significant change in your laceration, or if you are concerned there may be an infection (swelling, redness, drainage, increasing tenderness, red streaks, tender lumps in the armpit or groin above the laceration, or fever) , return to the Emergency Department immediately re-evaluation. Prescriptions: Butalb/Acetaminophen/Caffeine [Fioricet (50-325-40 mg) Tablet] 1 tab PO Q4HP PRN #15 tab PRN Reason: Forms: Parent Work Note
[2017-09-18 15:53] LABS: ABSOLUTE EOSINOPHILS # (AUTO) 0.1 10^3/uL (0.0-0.6); ABSOLUTE LYMPHOCYTES (AUTO) 1.4 10^3/uL (0.5-4.7); ABSOLUTE MONOCYTES (AUTO) 0.5 10^3/uL (0.1-1.4); ABSOLUTE NEUT (AUTO) 3.8 10^3/uL (1.7-8.2); BASOPHILS % (AUTO) 0.4 % (0-2); EOSINOPHILS % (AUTO) 1.6 % (0-6); HEMATOCRIT 36.5 % (36.0-47.0); HEMOGLOBIN 11.9 g/dL (12.0-15.5); LYMPHOCYTES % (AUTO) 23.6 % (13-45); MEAN CORPUSCULAR HEMOGLOBIN 24.7 pg (27.0-33.4); MEAN CORPUSCULAR HGB CONC 32.7 g/dL (32.0-36.0); MEAN CORPUSCULAR VOLUME 75 fl (80-97); MONOCYTES % (AUTO) 8.1 % (3-13); PLATELET COUNT 246 10^3/uL (150-450); RED BLOOD COUNT 4.84 10^6/uL (3.72-5.28); RED CELL DISTRIBUTION WIDTH 19.6 % (11.5-14.0); SEGMENTED NEUTROPHILS % (AUTO) 66.3 % (42-78); TOTAL CELLS COUNTED % (AUTO) 100 %; WHITE BLOOD COUNT 5.8 10^3/uL (4.0-10.5)
[2017-09-18 17:02] VITALS: BP 105/69
== END 2017-09-18 17:02 | disposition home or self-care (01) ==
LOC: ER 14:40
PROC: 0HQ1XZZ Repair Face Skin, External Approach (ICD-10-PCS; principal; 2017-09-18)
DX: S01.81XA Laceration without foreign body of other part of head, initial encounter (principal); W22.09XA Striking against other stationary object, initial encounter; Y93.E2 Activity, laundry
CPT/HCPCS: 99283; 36415; 85025; 12011; J3490 ×3

== ENCOUNTER 2018-01-15 01:14 | Emergency (ER) | payer MEDICAID ==
[2018-01-15 01:22] VITALS: BP 128/97
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
--- NOTE | 2018-01-15 02:36 | RADIOLOGY REPORT (SQ) ---
EXAM DESCRIPTION: 3 views of the right hand CLINICAL HISTORY: 22 years, Female, injury, pain, deformity over 4th metacarpal COMPARISON: None. FINDINGS: There is a transverse displaced fracture of the mid fourth metacarpal. There is approximately 30 degrees of apex dorsal angulation. The fracture is dorsally displaced by approximately 6 mm. The rest of the bony alignment is normal. There is soft tissue swelling overlying the fracture. The distal radius/ ulna, carpal, metacarpal, and phalangeal bones are normal in appearance. The intercarpal, carpometacarpal, remaining metacarpophalangeal, and interphalangeal joints are normal in appearance. IMPRESSION: Transverse, displaced, angulated fracture of the mid fourth metacarpal with soft tissue swelling.
--- NOTE | 2018-01-15 02:37 | RADIOLOGY REPORT (SQ) ---
EXAM DESCRIPTION: 3 views of the right wrist CLINICAL HISTORY: 22 years, Female, injury, pain COMPARISON: Right hand radiographs January 15, 2018. FINDINGS: There is limited evaluation of the patient's displaced and angulated mid fourth metacarpal fracture. There is no additional fracture or dislocation of the right wrist. The rest of the bony alignment is normal. There is soft tissue swelling overlying the fracture. The distal radius/ ulna, carpal, remaining metacarpal, and phalangeal bones are normal in appearance. IMPRESSION: 1. Displaced and angulated fracture of the mid fourth metacarpal with soft tissue swelling. 2. No additional fracture or dislocation of the right wrist.
[2018-01-15] MEDS ORDERED: ONDANSETRON 4 MG TAB.RAPDIS PO ONE (03:35)
[2018-01-15] MEDS ORDERED: MORPHINE SULFATE 10 MG/ML INJ IM ONE (03:35)
[2018-01-15] MEDS ORDERED: ONDANSETRON ODT 4 MG TAB (6 TAB/ER DISP) PO PRN (04:35)
[2018-01-15] MEDS ORDERED: HYDROCODONE/ACETAMINOPHEN 5-325 MG (6 TAB/ER DISP) PO PRN (04:35)
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
--- NOTE | 2018-01-15 04:55 | RADIOLOGY REPORT (SQ) ---
EXAM DESCRIPTION: 3 views of the right hand January 15, 2018 CLINICAL HISTORY: 22 years, Female, post reduction COMPARISON: Right hand radiographs January 15, 2018 FINDINGS: There is slightly improved alignment of the patient's fourth metacarpal fracture. There is approximately 30 degrees of apex dorsal angulation. The fracture is displaced dorsally by approximately 5 mm. There is been interval cast placement overlying the hand. There is diffuse soft tissue swelling There is no additional fracture or dislocation. The intercarpal, carpometacarpal, metacarpophalangeal, and interphalangeal joints are normal in appearance. IMPRESSION: Minimally improved alignment of mid fourth metacarpal fracture with cast placement. There is persistent angulation and displacement of the fracture.
== END 2018-01-15 05:07 | disposition home or self-care (01) ==
LOC: ER 01:14
DX: O9A.219 Injury, poisoning and certain other consequences of external causes complicating pregnancy, unspecified trimester (principal); S62.322A Displaced fracture of shaft of third metacarpal bone, right hand, initial encounter for closed fracture; V86.99XA Unspecified occupant of other special all-terrain or other off-road motor vehicle injured in nontraffic accident, initial encounter; Z3A.00 Weeks of gestation of pregnancy not specified
CPT/HCPCS: 99284; 96372; 81025; 73130; 73110; 26605; S0119; J2270

== ENCOUNTER 2018-01-20 16:24 | Day surgery (SDC) | payer MEDICAID ==
[~2018-01-20 16:24] MED LIST: CEFAZOLIN 2 GM/D5W RTU 2 GM/50 ML RTUPB IV PRN; DEXAMETHASONE SOD PHOSPHATE INJ 4 MG/1 ML VIAL ONE; KETOROLAC TROMETHAMINE 60 MG/2 ML SDV ONE; METOCLOPRAMIDE HCL INJ/PF 10 MG/2 ML SDV ONE; ONDANSETRON HCL INJ/PF 4 MG/2 ML SDV ONE
[2018-01-20] MEDS ORDERED: FENTANYL CITRATE INJ/PF 100 MCG/2 ML AMPUL IV PRN ×3 (16:47)
[2018-01-20] MEDS ORDERED: MEPERIDINE HCL/PF INJ 25 MG/1 ML DISP.SYRIN IV PRN (16:47)
[2018-01-20] MEDS ORDERED: DIPHENHYDRAMINE HCL 50 MG/ML VIAL IV PRN (16:47)
[2018-01-20] MEDS ORDERED: PROMETHAZINE HCL INJ 25 MG/1 ML VIAL IV PRN ×2 (16:47)
[2018-01-20] MEDS ORDERED: ONDANSETRON HCL INJ/PF 4 MG/2 ML SDV IV PRN (16:47)
[2018-01-20] MEDS ORDERED: MORPHINE SULFATE 10 MG/ML INJ IV PRN (16:47)
[2018-01-20] MEDS ORDERED: LIDOCAINE 2% INJ-PF (100 MG/5 ML) SYRINGE ONE (16:52)
[2018-01-20] MEDS ORDERED: FENTANYL CITRATE INJ/PF 100 MCG/2 ML AMPUL ONE (16:52)
[2018-01-20] MEDS ORDERED: EPHEDRINE SULFATE INJ 50 MG/1 ML AMPULE ONE (16:52)
[2018-01-20] MEDS ORDERED: MIDAZOLAM 2 MG/2 ML INJ ONE (16:52)
[2018-01-20] MEDS ORDERED: PROPOFOL INJ 200 MG/20 ML VIAL IV ONE (16:53)
[2018-01-20] MEDS ORDERED: ACETAMINOPHEN 1,000 MG/100 ML RTUPB IV ONE (16:53)
--- NOTE | 2018-01-20 17:42 | Operative Report ---
Operative Report DATE OF SURGERY: 01/13/18 PREOPERATIVE DIAGNOSIS: Right fourth metacarpal fracture OPERATION: Open reduction internal fixation right fourth metacarpal fracture SURGEON: LINDSAY MONTERO ANESTHESIA: GA ESTIMATED BLOOD LOSS: Minimal PROCEDURE: The patient supine Afrin table the right upper extremities prepped and draped sterile fashion. The limb was elevated for examination tourniquet inflated 280 torr. Longitudinal incisions made over the central portion of the right fourth metacarpal and sharp dissection was carried incision down to the underlying metacarpal. The extensor tendons are retracted ulnarward. A 5 hole [employer] titanium plate is applied to the dorsum of the metacarpal and 2 screws proximally 2 screws distally are used to secure the plate and the fracture reduction. The plate placement and fracture reduction assessed using fluoroscopy and felt to be adequate. At this point the tourniquet is deflated. Hemostasis stasis obtained with electrocautery. The wound was irrigated with bulb lavage. Is closed with interrupted Vicryl followed by nylon. A sterile compressive dressing is applied and the patient's return to the PACU in satisfactory condition.
--- NOTE | 2018-01-20 17:46 | Discharge Summary ---
Discharge Summary (SDC) - Discharge Final Diagnosis: Right fourth metacarpal fracture Date of Surgery: 01/20/18 Discharge Date: 01/20/18 Condition: Good Treatment or Instructions: Elevate right upper extremity Prescriptions: Hydrocodone/Acetaminophen [Hydrocodone-Acetamin 5-325 mg] 1 each PO Q4H PRN #40 tablet PRN Reason: For Pain Ondansetron HCl [Zofran] 4 mg PO Q6 PRN #24 tablet PRN Reason: Discharge Diet: As Tolerated, Regular Respiratory Treatments at Home: Deep Breathing/Coughing Discharge Activity: Balance Activity w/Rest, No tub bath Home Care Assistance: None Needed Report the Following to Your Physician Immediately: Shortness of Breath, Fever over 101 Degrees, Drainage-Foul Smelling
[2018-01-20 18:08] LABS: HEMATOCRIT 39.3 % (36.0-47.0); MEAN CORPUSCULAR HEMOGLOBIN 25.8 pg (27.0-33.4); MEAN CORPUSCULAR HGB CONC 33.1 g/dL (32.0-36.0); MEAN CORPUSCULAR VOLUME 78 fl (80-97); PLATELET COUNT 309 10^3/uL (150-450); RED BLOOD COUNT 5.03 10^6/uL (3.72-5.28); RED CELL DISTRIBUTION WIDTH 16.2 % (11.5-14.0); WHITE BLOOD COUNT 5.2 10^3/uL (4.0-10.5)
[2018-01-20] MEDS ORDERED: HYDROCODONE/ACETAMINOPHEN 5-325 MG TABLET PO PRN (18:16)
[2018-01-20] MEDS ORDERED: ONDANSETRON 4 MG TAB.RAPDIS SL PRN (18:16)
[2018-01-20 20:45] VITALS: BP 112/79
--- NOTE | 2018-01-21 08:24 | RADIOLOGY REPORT (SQ) ---
EXAM DESCRIPTION: HAND RIGHT 2 VIEWS; NO CHG FLUORO COMPLETED DATE/TIME: 01/20/2018 8:06 pm; 01/20/2018 8:05 pm REASON FOR STUDY: ORIF RT HAND COMPARISON: None. FLUOROSCOPY TIME: 6 seconds Spot images saved to PACS. TECHNIQUE: Intra-operative images acquired during surgical procedure to evaluate progress. NUMBER OF IMAGES: 2 LIMITATIONS: None. FINDINGS: Fluoroscopy was provided for intraoperative procedure. Please refer to the operative repo rt for further discussion. IMPRESSION: IMAGE(S) OBTAINED DURING PROCEDURE. COMMENT: Quality ID [id number]: Final reports for procedures using fluoroscopy that document radiation exp osure indices, or exposure time and number of fluorographic images (if radiation exposure indices are not available) Please consult full operative report of the attending physician for description of the procedure. TECHNICAL DOCUMENTATION: JOB ID: [id number] [employer]- All Rights Reserved Reading location - IP/workstation name: [email or web address]
--- NOTE | 2018-01-21 08:24 | RADIOLOGY REPORT (SQ) ---
EXAM DESCRIPTION: HAND RIGHT 2 VIEWS; NO CHG FLUORO COMPLETED DATE/TIME: 01/20/2018 8:06 pm; 01/20/2018 8:05 pm REASON FOR STUDY: ORIF RT HAND COMPARISON: None. FLUOROSCOPY TIME: 6 seconds Spot images saved to PACS. TECHNIQUE: Intra-operative images acquired during surgical procedure to evaluate progress. NUMBER OF IMAGES: 2 LIMITATIONS: None. FINDINGS: Fluoroscopy was provided for intraoperative procedure. Please refer to the operative repo rt for further discussion. IMPRESSION: IMAGE(S) OBTAINED DURING PROCEDURE. COMMENT: Quality ID [id number]: Final reports for procedures using fluoroscopy that document radiation exp osure indices, or exposure time and number of fluorographic images (if radiation exposure indices are not available) Please consult full operative report of the attending physician for description of the procedure. TECHNICAL DOCUMENTATION: JOB ID: [id number] [employer]- All Rights Reserved Reading location - IP/workstation name: [email or web address]
== END 2018-01-20 20:55 | disposition home or self-care (01) ==
LOC: OROUT 16:24 → 4S 18:38 → OROUT 20:55
PROVIDERS: ATTEND Orthopaedic Surgery
DX: S62.304A Unspecified fracture of fourth metacarpal bone, right hand, initial encounter for closed fracture (principal); X58.XXXA Exposure to other specified factors, initial encounter
CPT/HCPCS: 36415; 85027; 81025; 73120; 26615; C1713 ×3; J2250; J1100; J1885; J3010; J2001; J2765; J2405; J2704; J0690; J0131; 01830; J3490

== ENCOUNTER 2019-12-12 00:08 | Emergency (ER) | payer SELFPAY ==
[2019-12-12 01:48] LABS: ABSOLUTE MONOCYTES (AUTO) 0.5 10^3/uL (0.1-1.4); ABSOLUTE NEUT (AUTO) 7.8 10^3/uL (1.7-8.2); BASOPHILS % (AUTO) 0.2 % (0-2); EOSINOPHILS % (AUTO) 0.1 % (0-6); HEMATOCRIT 37.7 % (36.0-47.0); HEMOGLOBIN 12.8 g/dL (12.0-15.5); LYMPHOCYTES % (AUTO) 10.5 % (13-45); MEAN CORPUSCULAR HEMOGLOBIN 27.8 pg (27.0-33.4); MEAN CORPUSCULAR HGB CONC 34.1 g/dL (32.0-36.0); MEAN CORPUSCULAR VOLUME 82 fl (80-97); MONOCYTES % (AUTO) 5.2 % (3-13); PLATELET COUNT 265 10^3/uL (150-450); RED BLOOD COUNT 4.62 10^6/uL (3.72-5.28); RED CELL DISTRIBUTION WIDTH 15.9 % (11.5-14.0); TOTAL CELLS COUNTED % (AUTO) 100 %; WHITE BLOOD COUNT 9.3 10^3/uL (4.0-10.5)
[2019-12-12 02:15] LABS: ALBUMIN 4.3 g/dL (3.5-5.0); ALKALINE PHOSPHATASE 46 U/L (38-126); ANION GAP 10 (5-19); ASPARTATE AMINO TRANSFERASE 19 U/L (14-36); BILIRUBIN,TOTAL 1.4 mg/dL (0.2-1.3); BLOOD UREA NITROGEN 9 mg/dL (7-20); CALCIUM 9.8 mg/dL (8.4-10.2); CARBON DIOXIDE 24 mmol/L (22-30); CHLORIDE 101 mmol/L (98-107); GLUCOSE 104 mg/dL (75-110); TOTAL PROTEIN 7.6 g/dL (6.3-8.2)
[2019-12-12 05:45] LABS: APPEARANCE,URINE CLEAR; BILIRUBIN,URINE NEGATIVE (NEGATIVE); COLOR,URINE YELLOW; GLUCOSE, URINE 50 mg/dL (NEGATIVE); KETONES,URINE 80 mg/dL (NEGATIVE); LEUKOCYTE ESTERASE,URINE NEGATIVE (NEGATIVE); NITRITE,URINE NEGATIVE (NEGATIVE); PROTEIN,URINE 30 mg/dL (NEGATIVE); URINE SPECIFIC GRAVITY 1.029; UROBILINOGEN,URINE NEGATIVE mg/dL (<2.0)
--- NOTE | 2019-12-12 06:17 | RADIOLOGY REPORT (SQ) ---
Ultrasound OB limited on 12/12/2019 at 5:22 AM CLINICAL INDICATION: , generalized abdominal pain, hyperemesis COMPARISON: None this FINDINGS: Multiple sonographic images are obtained throughout the pelvis by transabdominal approach only, both transverse and sagittal images are obtained. Cervical length measures approximately 3 cm and the cervix is closed. Placenta is anterior in location with no evidence of placenta previa or abruption. The maternal adnexa appear unremarkable with neither ovary visualized. Single intrauterine fetus is noted in variable presentation. Positive cardiac activity is noted with heart rate of 147 bpm. Estimated gestational age by measurements is an approximate 16 week two day gestation. Estimated weight is 147 g +/- 22 g. Possible uterine contraction is noted in the anterior uterus. No gross abnormality is noted on limited imaging. IMPRESSION: Single living approximately 16 week two day intrauterine fetus with no acute abnormality on limited imaging.
[2019-12-12] MEDS ORDERED: ONDANSETRON ODT 4 MG TAB (6 TAB/ER DISP) PO PRN (06:54)
--- NOTE | 2019-12-12 06:56 | ER Document Report ---
ED GI/ - General Chief Complaint: Abdominal Pain Stated Complaint: ABDOMINAL PAIN Time Seen by Provider: 12/12/19 04:12 Primary Care Provider: [facility] [Outside] - Follow up as needed Mode of Arrival: Ambulatory Information source: Patient Notes: Otherwise healthy 24-year-old female presents emergency department concern for nausea vomiting in the setting of . Patient reports she is a G3, P2, states she is not sure how far along she is as her last menstrual period was several months ago and is irregular. She denies any abnormal discharge or vaginal bleeding. She denies any abdominal pain. She reports with her last she had hyperemesis. She has not yet established OB care. TRAVEL OUTSIDE OF THE [place] IN LAST 30 DAYS: No - Related Data Allergies/Adverse Reactions: No Known Allergies Allergy (Verified 01/19/18 16:33) Past Medical History - General Information source: Patient - Social History Smoking Status: Former Smoker Chew tobacco use (# tins/day): No Frequency of alcohol use: None Drug Abuse: None Family History: Reviewed & Not Pertinent Patient has homicidal ideation: No - Past Medical History Cardiac Medical History: Denies: Hx Coronary Artery Disease, Hx Heart Attack, Hx Hypertension Pulmonary Medical History: Reports: Hx Bronchitis - As a child Denies: Hx Asthma, Hx COPD, Hx Pneumonia Neurological Medical History: Denies: Hx Cerebrovascular Accident, Hx Seizures Renal/ Medical History: Denies: Hx Peritoneal Dialysis Musculoskeletal Medical History: Denies Hx Arthritis - Immunizations Immunizations up to date: Yes Hx Diphtheria, Pertussis, Tetanus Vaccination: Yes Review of Systems - Review of Systems Gastrointestinal: Nausea, Vomiting -: Yes All other systems reviewed and negative Physical Exam - Vital signs Vitals: Temp Pulse Resp BP Pulse Ox 98.8 F 72 16 105/62 99 12/12/19 00:26 12/12/19 00:26 12/12/19 00:26 12/12/19 00:12/12/19 00:26 - Notes Notes: PHYSICAL EXAMINATION: GENERAL: Well-appearing, well-nourished and in no acute distress. HEAD: Atraumatic, normocephalic. EYES: Pupils equal round and reactive to light, extraocular movements intact, conjunctiva are normal. ENT: Nares patent, oropharynx clear without exudates. Moist mucous membranes. NECK: Normal range of motion, supple without lymphadenopathy LUNGS: Breath sounds clear to auscultation bilaterally and equal. No wheezes rales or rhonchi. HEART: Regular rate and rhythm without murmurs ABDOMEN: Soft, nontender, nondistended abdomen. No guarding, no rebound. No masses appreciated. Female : deferred Musculoskeletal: Normal range of motion, no pitting or edema. No cyanosis. NEUROLOGICAL: Cranial nerves grossly intact. Normal speech, normal gait. Normal sensory, motor exams PSYCH: Normal mood, normal affect. SKIN: Warm, Dry, normal turgor, no rashes or lesions noted. Course - Re-evaluation Re-evalutation: Laboratory 12/12/19 12/12/19 12/12/19 01:35 01:35 01:35 WBC 9.3 RBC 4.62 Hgb 12.8 Hct 37.7 MCV 82 MCH 27.8 MCHC 34.1 RDW 15.9 H Plt Count 265 Lymph % (Auto) 10.5 L Quay % (Auto) 5.2 Eos % (Auto) 0.1 Baso % (Auto) 0.2 Absolute Neuts (auto) 7.8 Absolute Lymphs (auto) 1.0 Absolute Monos (auto) 0.5 Absolute Eos (auto) 0.0 Absolute Basos (auto) 0.0 Seg Neutrophils % 84.0 H Sodium 134.7 L Potassium 4.0 Chloride 101 Carbon Dioxide 24 Anion Gap 10 BUN 9 Creatinine 0.49 L Est GFR ( Amer) > 60 Est GFR (MDRD) Non-Af > 60 Glucose 104 Calcium 9.8 Total Bilirubin 1.4 H Direct Bilirubin 0.0 Neonat Total Bilirubin Not Reportable Neonat Direct Bilirubin Not Reportable Neonat Indirect Bili Not Reportable AST 19 ALT 12 Alkaline Phosphatase 46 Total Protein 7.6 Albumin 4.3 Lipase 106.4 Beta HCG, Quant 83900.00 H Total Beta HCG POSITIVE Urine Color Cancelled Urine Appearance Cancelled Urine pH Cancelled Ur Specific [place] Cancelled Urine Protein Cancelled Urine Glucose (UA) Cancelled Urine Ketones Cancelled Urine Blood Cancelled Urine Nitrite Cancelled Urine Bilirubin Cancelled Urine Urobilinogen Cancelled Ur Leukocyte Esterase Cancelled Urine WBC (Auto) Cancelled Urine RBC (Auto) Cancelled U Hyaline Cast (Auto) Cancelled Urine Bacteria (Auto) Cancelled Urine Red Cell Clumps Cancelled Urine WBC Clumps Cancelled Squamous Epi Cells Auto Cancelled U Non-Squamous Epis Auto Cancelled Calcium Carbonate Cryst Cancelled Calcium Phosphate Cryst Cancelled Calcium Oxalate Cr Auto Cancelled Leucine Crystals Cancelled Cystine Crystals Cancelled Uric Acid Cryst (Auto) Cancelled Triple Phos Cryst (Auto) Cancelled Tyrosine Crystals Cancelled Amorphous Sediment Auto Cancelled Cellular Casts Cancelled Epithelial Casts (Auto) Cancelled Fatty Casts Cancelled Granular Casts (Auto) Cancelled Waxy Casts (Auto) Cancelled Broad Casts Cancelled RBC Casts (Auto) Cancelled WBC Casts (Auto) Cancelled Urine Mucus (Auto) Cancelled U Trichomonas (Auto) Cancelled Ur Yeast w Hyphae Cancelled Urine Yeast (Budding) Cancelled Urine Ascorbic Acid Cancelled 12/12/19 05:10 WBC RBC Hgb Hct MCV MCH MCHC RDW Plt Count Lymph % (Auto) Quay % (Auto) Eos % (Auto) Baso % (Auto) Absolute Neuts (auto) Absolute Lymphs (auto) Absolute Monos (auto) Absolute Eos (auto) Absolute Basos (auto) Seg Neutrophils % Sodium Potassium Chloride Carbon Dioxide Anion Gap BUN Creatinine Est GFR ( Amer) Est GFR (MDRD) Non-Af Glucose Calcium Total Bilirubin Direct Bilirubin Neonat Total Bilirubin Neonat Direct Bilirubin Neonat Indirect Bili AST ALT Alkaline Phosphatase Total Protein Albumin Lipase Beta HCG, Quant Total Beta HCG Urine Color YELLOW Urine Appearance CLEAR Urine pH 6.0 Ur Specific [place] 1.029 Urine Protein 30 H Urine Glucose (UA) 50 H Urine Ketones 80 H Urine Blood NEGATIVE Urine Nitrite NEGATIVE Urine Bilirubin NEGATIVE Urine Urobilinogen NEGATIVE Ur Leukocyte Esterase NEGATIVE Urine WBC (Auto) 2 Urine RBC (Auto) 0 U Hyaline Cast (Auto) 3 Urine Bacteria (Auto) TRACE Urine Red Cell Clumps Urine WBC Clumps Squamous Epi Cells Auto 5 U Non-Squamous Epis Auto Calcium Carbonate Cryst Calcium Phosphate Cryst Calcium Oxalate Cr Auto Leucine Crystals Cystine Crystals Uric Acid Cryst (Auto) Triple Phos Cryst (Auto) Tyrosine Crystals Amorphous Sediment Auto Cellular Casts Epithelial Casts (Auto) Fatty Casts Granular Casts (Auto) Waxy Casts (Auto) Broad Casts RBC Casts (Auto) WBC Casts (Auto) Urine Mucus (Auto) MANY U Trichomonas (Auto) Ur Yeast w Hyphae Urine Yeast (Budding) Urine Ascorbic Acid NEGATIVE Obstetrics Ultrasound 12/12/19 04:35 IMPRESSION: Single living approximately 16 week two day intrauterine fetus with no acute abnormality on limited imaging. Patient's work-up today has been reassuring. Her ultrasound shows a living 16- week 2-day intrauterine . Lab results were unremarkable. Patient states she feels better after IV fluids and antiemetics she will be discharged home. She will follow-up with OB. - Vital Signs Vital signs: Temp Pulse Resp BP Pulse Ox 98.2 F 74 18 110/70 99 12/12/19 07:24 12/12/19 07:24 12/12/19 07:24 12/12/19 07:24 12/12/19 07:24 - Laboratory Result Diagrams: 12/12/19 01:35 12/12/19 01:35 Laboratory results interpreted by me: 12/12/19 12/12/19 12/12/19 01:35 01:35 05:10 RDW 15.9 H Lymph % (Auto) 10.5 L Seg Neutrophils % 84.0 H Sodium 134.7 L Creatinine 0.49 L Total Bilirubin 1.4 H Beta HCG, Quant 07394.00 H Urine Protein 30 H Urine Glucose (UA) 50 H Urine Ketones 80 H Discharge - Discharge Clinical Impression: Nausea and vomiting Qualifiers: Vomiting type: unspecified Vomiting Intractability: non-intractable Qualified Code(s): R11.2 - Nausea with vomiting, unspecified Condition: Stable Disposition: HOME, SELF-CARE Additional Instructions: As discussed your work-up today was reassuring. Please take the medication as prescribed. Please call to establish OB care. I have given you the phone number for the health department that would be the best place to start. Return to the emergency department any new or worsening symptoms. Prescriptions: Ondansetron [Zofran Odt 4 mg Tablet] 1 - 2 tab PO Q4H PRN #20 tab.rapdis PRN Reason: For Nausea/Vomiting Referrals: [facility] [Outside] - Follow up as needed
[2019-12-12 07:25] VITALS: BP 110/70
== END 2019-12-12 07:24 | disposition home or self-care (01) ==
LOC: ER 00:08
DX: R11.2 Nausea with vomiting, unspecified (principal); R10.9 Unspecified abdominal pain; Z87.891 Personal history of nicotine dependence
CPT/HCPCS: 36415; 76815; 80053; 81001; 83690; 84702; 85025; 99284

== ENCOUNTER 2020-02-07 13:44 | Outpatient (CLI) | payer SELFPAY ==
[2020-02-07] MEDS ORDERED: HYDROXYZINE PAMOATE 50 MG CAPSULE PO ONE (14:18)
[2020-02-07] MEDS ORDERED: HYDROXYZINE PAMOATE 50 MG CAPSULE ONE ×2 (14:18→14:32)
[2020-02-07 14:26] LABS: APPEARANCE,URINE CLEAR; BILIRUBIN,URINE NEGATIVE (NEGATIVE); COLOR,URINE YELLOW; GLUCOSE, URINE NEGATIVE (NEGATIVE); KETONES,URINE NEGATIVE (NEGATIVE); LEUKOCYTE ESTERASE,URINE NEGATIVE (NEGATIVE); NITRITE,URINE NEGATIVE (NEGATIVE); PROTEIN,URINE NEGATIVE (NEGATIVE); URINE SPECIFIC GRAVITY 1.013; UROBILINOGEN,URINE NEGATIVE mg/dL (<2.0)
[2020-02-07 14:48] LABS: URINE AMPHETAMINES SCREEN NEGATIVE; URINE BARBITURATES SCREEN NEGATIVE; URINE BENZODIAZEPINES SCREEN NEGATIVE; URINE COCAINE SCREEN NEGATIVE; URINE METHADONE SCREEN NEGATIVE; URINE PHENCYCLIDINE SCREEN NEGATIVE
[2020-02-07 14:52] LABS: URINE MARIJUANA (THC) SCREEN UNCONFIRMED POSITIVE
--- NOTE | 2020-02-07 16:02 | RADIOLOGY REPORT (SQ) ---
EXAM DESCRIPTION: U/S OB LIMITED IMAGES COMPLETED DATE/TIME: 02/07/2020 3:41 pm REASON FOR STUDY: uterine cramping COMPARISON: None. TECHNIQUE: Limited transvaginal grayscale ultrasound for evaluation of specific requested obstetrica l parameters. LIMITATIONS: None. FINDINGS: CERVICAL LENGTH: 2.3 cm. Closed. SEVERO: 15.9 cm. FHR: 145 beats per minute. PRESENTATION: Breech. PLACENTA: Posterior ANATOMY: Not assessed OTHER: None. IMPRESSION: LIMITED OBSTETRICAL ULTRASOUND WITH MEASURED PARAMETERS DELINEATED ABOVE. Trimester of : Second trimester - 13 weeks 1 day to 27 weeks 6 days. TECHNICAL DOCUMENTATION: JOB ID: [id number] 2010 [id number]- All Rights Reserved Reading location - IP/workstation name: [email or web address]
== END 2020-02-07 15:59 | disposition home or self-care (01) ==
LOC: LC 13:44
PROVIDERS: ATTEND Obstetrics & Gynecology
DX: O47.02 False labor before 37 completed weeks of gestation, second trimester (principal); Z3A.25 25 weeks gestation of pregnancy
CPT/HCPCS: 59899; 81001; 80307; 76815; G0480 ×2; 80349

== ENCOUNTER 2020-04-05 18:48 | Outpatient (CLI) | payer MEDICAID ==
[2020-04-05] MEDS ORDERED: ONDANSETRON HCL 8 MG TABLET PO ONE (19:26)
[2020-04-05] MEDS ORDERED: ONDANSETRON HCL 8 MG TABLET ONE (19:31)
[2020-04-05 19:50] LABS: APPEARANCE,URINE SLIGHTLY-CLOUDY; BILIRUBIN,URINE NEGATIVE (NEGATIVE); GLUCOSE, URINE 50 mg/dL (NEGATIVE); KETONES,URINE 80 mg/dL (NEGATIVE); LEUKOCYTE ESTERASE,URINE NEGATIVE (NEGATIVE); NITRITE,URINE NEGATIVE (NEGATIVE); PROTEIN,URINE 100 mg/dL (NEGATIVE); URINE SPECIFIC GRAVITY 1.025; UROBILINOGEN,URINE NEGATIVE mg/dL (<2.0)
[2020-04-05 19:51] LABS: COLOR,URINE YELLOW
--- NOTE | 2020-04-05 20:03 | Non Stress Test Report ---
Non Stress Test Datetime Report Generated by CPN: 04/05/2020 20:02 DEMOGRAPHIC EGA NST: 33.3 INDICATION Indication for Study (NST) Other: IUP @ 33.3 wks, nausea VITAL SIGNS Temperature - NST: 98.7 Pulse - NST: 69 RESP - NST: 18 NBPSYS NST: 113 NBPDIA NST: 58 MONITORING Monitor Explained: Monitor Explained; Test Explained; Patient Verbalized Understanding Time on Monitor: 04/05/2020 19:08 Time off Monitor: 04/05/2020 19:58 NST Duration: 50 NST INTERVENTIONS NST Interventions: PO Hydration; Reposition Patient Physician Notified NST: Dr. Salmon BABY A: [id number] BABY A Movement : Present Contraction Frequency : rare FHR Baseline : 130 Accelerations : 15X15 Decelerations : None Variability : Moderate 6-25bpm NST Review: Meets Criteria for Reactive NST NST Review and Verified By : MELANY Bowser Results: Reactive NST REPORT Report Trigger: Send Report
[2020-04-05 20:14] LABS: URINE AMPHETAMINES SCREEN NEGATIVE; URINE BARBITURATES SCREEN NEGATIVE; URINE BENZODIAZEPINES SCREEN NEGATIVE; URINE COCAINE SCREEN NEGATIVE; URINE METHADONE SCREEN NEGATIVE; URINE PHENCYCLIDINE SCREEN NEGATIVE
[2020-04-05 20:29] LABS: URINE MARIJUANA (THC) SCREEN UNCONFIRMED POSITIVE
== END 2020-04-05 22:01 | disposition home or self-care (01) ==
LOC: LC 18:48
PROVIDERS: ATTEND Obstetrics & Gynecology Gynecology
DX: O99.283 Endocrine, nutritional and metabolic diseases complicating pregnancy, third trimester (principal); E86.0 Dehydration; O21.2 Late vomiting of pregnancy; Z3A.33 33 weeks gestation of pregnancy
CPT/HCPCS: 59025; 81001; 80307; S0119

== ENCOUNTER 2020-04-07 14:58 | Outpatient (CLI) | payer MEDICAID ==
[2020-04-07 15:50] LABS: URINE AMPHETAMINES SCREEN NEGATIVE; URINE BARBITURATES SCREEN NEGATIVE; URINE BENZODIAZEPINES SCREEN NEGATIVE; URINE COCAINE SCREEN NEGATIVE; URINE METHADONE SCREEN NEGATIVE; URINE PHENCYCLIDINE SCREEN NEGATIVE
[2020-04-07 15:51] LABS: APPEARANCE,URINE SLIGHTLY-CLOUDY; BILIRUBIN,URINE NEGATIVE (NEGATIVE); COLOR,URINE AMBER; GLUCOSE, URINE NEGATIVE (NEGATIVE); KETONES,URINE 80 mg/dL (NEGATIVE); LEUKOCYTE ESTERASE,URINE TRACE (NEGATIVE); NITRITE,URINE NEGATIVE (NEGATIVE); PROTEIN,URINE 100 mg/dL (NEGATIVE); URINE SPECIFIC GRAVITY 1.024
[2020-04-07 16:02] LABS: URINE MARIJUANA (THC) SCREEN UNCONFIRMED POSITIVE
[2020-04-07] MEDS ORDERED: FAMOTIDINE INJ/PF 20 MG/2 ML SDV IV ONE (16:11)
[2020-04-07] MEDS ORDERED: PROMETHAZINE HCL INJ 25 MG/1 ML VIAL IV ONE (16:11)
[2020-04-07] MEDS ORDERED: THIAMINE HCL IV PRN ×2 (16:41)
[2020-04-07] MEDS ORDERED: NORMAL SALINE IV PRN ×2 (16:41)
[2020-04-07] MEDS ORDERED: THIAMINE HCL INJ 200 MG/2 ML VIAL ONE (17:08)
[2020-04-07] MEDS ORDERED: PROMETHAZINE HCL INJ 25 MG/1 ML VIAL ONE (17:47)
== END 2020-04-07 18:50 | disposition home or self-care (01) ==
LOC: LC 14:58
PROVIDERS: ATTEND Obstetrics & Gynecology
DX: O99.283 Endocrine, nutritional and metabolic diseases complicating pregnancy, third trimester (principal); E86.0 Dehydration; O21.2 Late vomiting of pregnancy; Z3A.33 33 weeks gestation of pregnancy
CPT/HCPCS: 59025; 81001; 80307; G0480 ×2; J2550; J3411; 80349

== ENCOUNTER 2020-05-10 11:44 | Inpatient (IN) | payer MEDICAID ==
--- NOTE | 2020-05-10 11:46 | Non Stress Test Report ---
Non Stress Test Datetime Report Generated by CPN: 05/10/2020 11:46 DEMOGRAPHIC EGA NST: 33.5 INDICATION Indication for Study (NST) Other: hyperemesis, dehydration URINE RESULTS Urine Protein, NST: Positive Urine Ketones - NST: Positive Urine Glucose - NST: Negative Urine Blood - NST: Negative MONITORING Monitor Explained: Monitor Explained; Test Explained; Patient Verbalized Understanding Time on Monitor: 04/07/2020 15:29 Time off Monitor: 04/07/2020 15:50 NST Duration: 21 NST INTERVENTIONS NST Interventions: IV Fluids Physician Notified NST: Dr. Arriaga BABY A: [id number] BABY A Movement : Present Contraction Frequency : 0 FHR Baseline : 140 Accelerations : 15X15 Decelerations : None Variability : Moderate 6-25bpm NST Review: Meets Criteria for Reactive NST NST Review and Verified By : AlbinoRNC NST Results: Reactive NST REPORT Report Trigger: Send Report
[2020-05-10 12:19] LABS: APPEARANCE,URINE SLIGHTLY-CLOUDY; BILIRUBIN,URINE NEGATIVE (NEGATIVE); COLOR,URINE YELLOW; GLUCOSE, URINE NEGATIVE (NEGATIVE); KETONES,URINE TRACE mg/dL (NEGATIVE); LEUKOCYTE ESTERASE,URINE SMALL (NEGATIVE); NITRITE,URINE NEGATIVE (NEGATIVE); PROTEIN,URINE NEGATIVE (NEGATIVE); URINE SPECIFIC GRAVITY 1.014; UROBILINOGEN,URINE NEGATIVE mg/dL (<2.0)
[2020-05-10 12:47] LABS: URINE AMPHETAMINES SCREEN NEGATIVE; URINE BARBITURATES SCREEN NEGATIVE; URINE BENZODIAZEPINES SCREEN NEGATIVE; URINE COCAINE SCREEN NEGATIVE; URINE METHADONE SCREEN NEGATIVE; URINE PHENCYCLIDINE SCREEN NEGATIVE
[2020-05-10 12:59] LABS: URINE MARIJUANA (THC) SCREEN UNCONFIRMED POSITIVE
[2020-05-10] MEDS ORDERED: RINGERS SOLUTION,LACTATED 1,000 ML IV ONE (14:30)
[2020-05-10] MEDS ORDERED: PENICILLIN G-K 5 MILLION UNIT VIAL ONE (14:34)
[2020-05-10] MEDS ORDERED: PENICILLIN G POTASSIUM 5,000,000 UNIT in DEXTROSE 5%-WATER 100 ML IV ONE (15:00)
[2020-05-10] MEDS ORDERED: RINGERS SOLUTION,LACTATED 1,000 ML IV PRN (16:34)
[2020-05-10] MEDS ORDERED: FENTANYL CITRATE INJ/PF 100 MCG/2 ML AMPUL IV ONE (17:15)
[2020-05-10] MEDS ORDERED: FENTANYL CITRATE INJ/PF 100 MCG/2 ML AMPUL ONE (17:15)
[2020-05-10 17:27] LABS: ABSOLUTE BASOPHILS # (AUTO) 0.1 10^3/uL (0.0-0.2); ABSOLUTE LYMPHOCYTES (AUTO) 1.3 10^3/uL (0.5-4.7); ABSOLUTE MONOCYTES (AUTO) 1.1 10^3/uL (0.1-1.4); BASOPHILS % (AUTO) 0.3 % (0-2); HEMATOCRIT 30.7 % (36.0-47.0); HEMOGLOBIN 9.7 g/dL (12.0-15.5); LYMPHOCYTES % (AUTO) 6.6 % (13-45); MEAN CORPUSCULAR HEMOGLOBIN 22.9 pg (27.0-33.4); MEAN CORPUSCULAR HGB CONC 31.7 g/dL (32.0-36.0); MEAN CORPUSCULAR VOLUME 72 fl (80-97); MONOCYTES % (AUTO) 5.6 % (3-13); PLATELET COUNT 298 10^3/uL (150-450); RED BLOOD COUNT 4.25 10^6/uL (3.72-5.28); RED CELL DISTRIBUTION WIDTH 17.2 % (11.5-14.0); SEGMENTED NEUTROPHILS % (AUTO) 87.5 % (42-78); TOTAL CELLS COUNTED % (AUTO) 100 %; WHITE BLOOD COUNT 19.5 10^3/uL (4.0-10.5)
[2020-05-10] MEDS ORDERED: OXYTOCIN 10 UNIT/ML VIAL ONE (17:47)
[2020-05-10] MEDS ORDERED: MISOPROSTOL 0.2 MG TABLET ONE (17:48)
[2020-05-10] MEDS ORDERED: OXYTOCIN/0.9 % SODIUM CHLORIDE 30 UNIT/500 ML RTUINJ ONE (17:48)
[2020-05-10] MEDS ORDERED: LIDOCAINE 1% INJ-PF (10 MG/ML) 30 ML SDV ONE (17:48)
[2020-05-10] MEDS ORDERED: EPHEDRINE SULFATE INJ 50 MG/1 ML AMPULE ONE (18:45)
[2020-05-10] MEDS ORDERED: ROPIVACAINE HCL 0.2% INJ/PF (2 MG/ML) 20 ML SDV ONE (18:46)
[2020-05-10] MEDS ORDERED: FENTANYL/BUPIVACAINE/NS/PF 300 MCG/150 ML RTUINJ EPI ONE (18:46)
--- NOTE | 2020-05-10 19:14 | Admission Physical ---
Datetime Report Generated by CPN: 05/10/2020 19:14 CURRENT ADMISSION Chief Complaint: Uterine Contractions Chief Complaint Other: 37+ wks and +GBS status with hx of precipitous labor/delivery with G2 RN reports minimal cervical change since arrival so we are doing OBS for now and treat for GBS, will change to full admit prn. Indication for Induction: Not Applicable Admit Impression : Term, Intrauterine Admit Plan: Observation/Evaluation Admit Plan- Other: +THC EFW 6lb 11oz yesterday plans for epidural ALLERGIES Medication Allergies: No Medication Allergies: No Known Allergies (05/10/2020) Latex: No Latex Allergies OBSTETRICAL HISTORY EDC: 05/27/2020 00:00 : 3 Para: 2 Term: 2 : 0 SAB: 0 IAB: 0 Ectopic: 0 Livin Cesareans: 0 VBACs: 0 Multiple Births: 0 Gestational Diabetes: No Rh Sensitization: No Incompetent Cervix: No PAOLO: No Infertility: No ART Treatment: No Uterine Anomaly: No IUGR: No Hx Previous C/S: No Macrosomia: No Hx Loss/Stillborn: No PIH: No Hx : No Placenta Previa/Abruption: No Depression/PP Depression: Yes PTL/PROM: No Post Hemorrhage: No Current Procedures: Ultrasound Obstetrical History Comments: [id number]-Girl [id number]-Girl [id number] SEE RECORDS Alcohol: No Marijuana : Yes Marijuana Comments: Was smoking cbd oil until about 1 week ago. Cocaine: No Other Illicit Drugs: No Cigarettes: Former Smoker. [id number] MEDICAL HISTORY Diabetes: No Blood Transfusion: No Pulmonary Disease (Asthma, TB): No Breast Disease: No Hypertension: No Post Framer Surgery: No Heart Disease: No Hosp/Surgery: Yes Autoimmune Disorder: No Anesthetic Complications: No Kidney Disease: Abnormal Pap Smear: No Neuro/Epilepsy: No Psychiatric Disorders: No Other Medical Diseases: No Hepatitis/Liver Disease: No Significant Family History: No Varicosities/Phlebitis: No Trauma/Violence : No Thyroid Dysfunction: No Medical History Comments: Right hand surgery; Childbirth, anxiety, OCD INFECTIOUS HISTORY Gonorrhea: No Genital Herpes: No Chlamydia: No Tuberculosis: No Syphilis: No Hepatitis: No HIV/AIDS Exposure: No Rash or Viral Illness: No HPV: No PHYSICAL EXAM General: Normal HEENT: Deferred Neurologic: Normal Thyroid: Deferred Heart: Normal Lungs: Normal Breast: Deferred Back: Deferred Abdomen: Normal Genitourinary Exam: Normal Extremities: Normal DTRs: Deferred Pelvic Type: Adequate Vital Signs: Reviewed MEMBRANES Membranes: Intact FETUS A EGA: 37.4 Variability: Moderate 6-25bpm PLANS FOR LABOR AND DELIVERY Labor and Delivery: None Pain Management: Epidural Feeding Preference: Formula Benefit of Breast Feed Discussed: Yes Circumcision: N/A INFORMED CONSENT Signature: with User ID: [email or web address]
[2020-05-10] MEDS ORDERED: DIPH/PERTUSS(ACELL)/TETANUS VAC/PF 0.5 ML SYR (>=10YO) IM PRN (20:21)
[2020-05-10] MEDS ORDERED: MEASLES,MUMPS&RUBELLA VACC/PF 0.5 ML VIAL SUBCUT PRN (20:21)
[2020-05-10] MEDS ORDERED: ACETAMINOPHEN WITH CODEINE #3 TABLET PO PRN (20:21)
[2020-05-10] MEDS ORDERED: MAGNESIUM HYDROXIDE SUSP 30 ML UDCUP PO PRN (20:21)
[2020-05-10] MEDS ORDERED: PROMETHAZINE HCL 25 MG SUPP.RECT PR PRN (20:21)
[2020-05-10] MEDS ORDERED: DIPHENHYDRAMINE HCL 25 MG CAPSULE PO PRN (20:21)
[2020-05-10] MEDS ORDERED: ACETAMINOPHEN 650 MG SUPP.RECT PR PRN (20:21)
[2020-05-10] MEDS ORDERED: DIBUCAINE 1% OINTMENT 28 GM TP PRN (20:21)
[2020-05-10] MEDS ORDERED: BENZOCAINE/MENTHOL AEROSOL SPRAY 56 ML TOP PRN (20:21)
[2020-05-10] MEDS ORDERED: OXYTOCIN/0.9 % SODIUM CHLORIDE 30 UNIT/500 ML RTUINJ IV PRN (20:21)
[2020-05-10] MEDS ORDERED: GLYCERIN/WITCH HAZEL LEAF 1 EACH MED..WIPE TP PRN (20:21)
[2020-05-10] MEDS ORDERED: PSEUDOEPHEDRINE HCL 30 MG TABLET PO PRN (20:21)
[2020-05-10] MEDS ORDERED: PROMETHAZINE HCL INJ 25 MG/1 ML VIAL IV PRN (20:21)
[2020-05-10] MEDS ORDERED: ZOLPIDEM TARTRATE 5 MG TABLET PO PRN (20:21)
[2020-05-10] MEDS ORDERED: PROMETHAZINE HCL 25 MG TABLET PO PRN (20:21)
[2020-05-10] MEDS ORDERED: NA PHOS,M-B/NA PHOS,DI-BA (ADULT) 133 ML ENEMA PR PRN (20:21)
[2020-05-10] MEDS ORDERED: PENICILLIN G POTASSIUM 2,500,000 UNIT in DEXTROSE 5%-WATER 50 ML IV SCH (20:35)
[2020-05-10] MEDS ORDERED: FAMOTIDINE 20 MG TABLET ONE (21:20)
[2020-05-10] MEDS ORDERED: IBUPROFEN 800 MG TABLET ONE ×2 (21:20→22:11)
[2020-05-10] MEDS: FAMOTIDINE 20 MG TABLET PO SCH (21:22)
[2020-05-10] MEDS: IBUPROFEN 800 MG TABLET PO SCH (21:23)
[2020-05-10] MEDS ORDERED: IBUPROFEN 800 MG TABLET PO ONE (21:59)
--- NOTE | 2020-05-10 22:04 | Delivery Summary ---
Del Sum A-C Datetime Report Generated by CPN: 05/10/2020 22:04 DELIVERY PERSONNEL DELIVERY PERSONNEL: [id number] Delivery Doctor:: Ky Salmon, MD Labor and Delivery Nurse:: Rosie Madsen, RN Amusement Park Entertainer/TECHNICAL SALES ASSOCIATE: Serene Parryan, ST MATERNAL INFORMATION Delivery Anesthesia: Epidural Medications After Delivery: Pitocin 30 Units in 500ml NS/D5W Maternal Complications: None LABOR SUMMARY EDC: 05/27/2020 00:00 No. Babies in Womb: 1 Attempted: No Labor Anesthesia: Epidural LABOR INFORMATION Reason for Induction: Not Applicable Onset of Labor: 05/10/2020 17:07 Complete Dilatation: 05/10/2020 20:11 Oxytocin: N/A Group B Beta Strep: positive Antibiotics # of Doses: 2 Antibiotics Time of Last Dose: 05/10/2020 18:32 Name of Antibiotic Given: penicillin Steroids Given: None Reason Steroids Not Administered: Not Applicable MEMBRANES Membranes Rupture Method: Artificial Rupture of Membranes: 05/10/2020 19:40 Length of Rupture (hr): 0.55 Amniotic Fluid Color: Clear Amniotic Fluid Amount: Small Amniotic Fluid Odor: Normal STAGES OF LABOR Stage 1 hr: 3 Stage 1 min: 4 Stage 2 hr: 0 Stage 2 min: 2 Stage 3 hr: -167 Stage 3 min: -55 Total Time in Labor hr: -164 Total Time in Labor min: -49 VAGINAL DELIVERY Episiotomy: None Laceration #1: None Laceration Extension #1: N/A Laceration Repair: Not Applicable Sponge Count Correct: N/A Sharps Count Correct: N/A CSECTION DELIVERY Primary Indication: N/A BABY A INFORMATION Infant Delivery Date/Time: 05/10/2020 20:13 Method of Delivery: Vaginal Nurse Controlled Delivery: No Born in Route : No : N/A Forceps: N/A Vacuum Extraction: N/A Shoulder Dystocia : No PRESENTATION/POSITION BABY A Presentation: Cephalic Cephalic Presentation: Vertex Vertex Position: Left Occipital Anterior Breech Presentation: N/A PLACENTA INFORMATION BABY A Placenta Delivery Time : 05/03/2020 20:18 Placenta Method of Delivery: Spontaneous Placenta Status: Delivered SCORES BABY A Heart Rate 1 min: >100 bpm Resp Effort 1 min: Good Cry Reflex Irritability 1 min: Cough or Sneeze or Pulls Away Muscle Tone 1 min: Active Motion Color 1 min: Blue/Pale Resuscitation Effort 1 min: Tactile Stimulation SCORE 1 MIN: 8 Heart Rate 5 min: >100 bpm Resp Effort 5 min: Good Cry Reflex Irritability 5 min: Cough or Sneeze or Pulls Away Muscle Tone 5 min: Active Motion Color 5 min: Body [place], Extremities Blue Resuscitation Effort 5 min: Tactile Stimulation SCORE 5 MIN: 9 INFANT INFORMATION BABY A Gestational Age at Delivery: 37.4 Gestational Status: Early Term- 37- 38.6 Weeks Infant Outcome : Liveborn Condition : Stable Sex: Female IDENTIFICATION BABY A Verification Date/Time: 05/10/2020 20:24 ID Band Number: [id number] Mother's Name Verified: Yes Infant RN Verifying : CNafisa Madsen, RN D. [place], RN WEIGHT/LENGTH BABY A Birthweight (gm): 2800 Infant Weight (lb): 6 Infant Weight (oz): 3 Infant Length (in): 18.50 Infant Length (cm): 46.99 CORD INFORMATION BABY A No. Cord Vessels: 3 Nuchal Cord : N/A Cord Blood Taken: Yes-For Storage (Mom's Blood type +) Suction: None ASSESSMENT BABY A Infant Complications: None Physical Findings at Delivery: Within Normal Limits Infant Respirations: Appears Normal Skin to Skin: Yes Fixture Fabricator Repairer/ALS Called : No Care By: T Gentilin RN Transferred To: Remains with Mother BABY B INFORMATION : N/A SIGNATURES Signature: with User ID: [email or web address]
--- NOTE | 2020-05-10 22:04 | Birth Certificate Data ---
Cert Data Datetime Report Generated by CPN: 05/10/2020 22:04 CERTIFICATE DATA Delivery Provider: Ky Salmon MD (02/07/2020 13:44:KAIN Bartholomew) 47a. Care: Yes (02/07/2020 13:44:Iesha Rausch RN) 47b. Date of First Visit: 12/16/2019 00:00 (02/07/2020 13:44:Iesha Rausch RN) 47c. Date of Last Visit: 05/09/2020 00:00 (02/07/2020 13:44:Iesha Rausch RN) 47d. Number of Visits: 8 (02/07/2020 13:44:Iesha Rausch RN) 48a. Number of Prev Live Births: 2 (02/07/2020 13:44:Iesha Rausch RN) 48b. Now Livin (02/07/2020 13:44:Namita Skinner RN) 48c. Live Births Now : 0 (02/07/2020 13:44:QS system process) 48e. Losses: 0 (02/07/2020 13:44:Iesha Rausch RN) RISK FACTORS IN THIS 49a. Diabetes: No (02/07/2020 13:44:Iesha Rausch RN) 49b. Hypertension: No (02/07/2020 13:44:Iesha Rausch RN) 49c. Previous Births: 0 (02/07/2020 13:44:Namita Skinner RN) 49d. Stillborns: No (02/07/2020 13:44:Iesha Rausch RN) 49d. IUGR: No (02/07/2020 13:44:Iesha Rausch RN) 49e. Infertility Treatment: No (02/07/2020 13:44:Iesha Rausch RN) 49f. Previous Cesareans: 0 (02/07/2020 13:44:Iesha Rausch RN) Mother's Height 50b. Height Inches: 63 (05/10/2020 19:35:QS system process) Mother's Weight 51a. Pre- Weight (lbs): 107 (02/07/2020 13:44:Iesha Rausch RN) 51b. Weight at Delivery (lbs): 112 (05/10/2020 19:35:QS system process) 52. Dt Last Normal Menses Began: 08/07/2019 00:00 (02/07/2020 13:44:Namita Skinner RN) Infections Present/Treated 53a. Gonorrhea: No (02/07/2020 13:44:Iesha Rausch RN) Results this Hospital Visit : Negative (02/07/2020 13:44:Namita Skinner RN) 53b. Syphilis: No (02/07/2020 13:44:Iesha Rausch RN) 53c. Chlamydia: No (02/07/2020 13:44:Iesha Rausch RN) Results this Hospital Visit: Negative (02/07/2020 13:44:Namita Skinner RN) 53d. Hepatitis B: No (02/07/2020 13:44:Iesha Rausch RN) Results this Hospital Visit: Negative (02/07/2020 13:44:Namita Skinner RN) 53e. Hepatitis C: Negative (02/07/2020 13:44:Iesha Rausch RN) 53h. Mother Tested for HBsAG: Yes (02/07/2020 13:44:Iesha Rausch RN) 53i. Date Tested: 02/01/2020 00:00 (02/07/2020 13:44:Iesha Rausch RN) 53j. Test Result: Negative (02/07/2020 13:44:Namita Skinner RN) Obstetric Procedures 54a, b, c. Obstetric Procedures: Ultrasound (02/07/2020 13:44:Iesha Rausch RN) Cigarette Smoking Cigarette Smoking: Former Smoker. [id number] (02/07/2020 13:44:Iesha Rausch RN) 55a. 3 Months Before Preg - Ci (02/07/2020 13:44:Iesha Rausch RN) 55b. 1st Trimester of Preg- Ci (02/07/2020 13:44:Iesha Rausch RN) 55c. 2nd Trimester of Preg- Ci (02/07/2020 13:44:Iesha Rausch RN) 55d. 3rd Trimester of Preg- Ci (02/07/2020 13:44:Iesha Rausch RN) Onset of Labor 56a. PROM >12 Hrs: 0.55 (02/07/2020 13:44:QS system process) 56b. Precipitous Labor <3 Hrs: -164 (02/07/2020 13:44:QS system process) 56c. Prolonged Labor > 20 Hrs: -164 (02/07/2020 13:44:QS system process) 57a. Induction of Labor: N/A (02/07/2020 13:44:KAIN Bartholomew) 57c. Non-Vertex Presentation A: Vertex (02/07/2020 13:44:KAIN Bartholomew) 57d. Steroids - Lung Mat: None (02/07/2020 13:44:KAIN Bartholomew) 57d. Steroids - Lung Mat: Not Applicable (02/07/2020 13:44:KAIN Bartholomew) 57e. Antibiotics During Labor: 05/10/2020 18:32 (02/07/2020 13:44:Gia Tipton RNC) 57f. Mat [place] or Temp >100.4: 97.7 (02/07/2020 13:44:Gia Tipton, RNC) 57g. Moderate/Heavy Meconium: Clear (05/10/2020 19:40:Rosie Madsen RN) 57h. Intolerance of Labor: N/A (02/07/2020 13:44:KAIN Bartholomew) 57i. Epidural/Spinal Anesthesia: Epidural (02/07/2020 13:44:Gia Tipton RNC) Method of Delivery 58a. Forceps - Unsuccessful A: N/A (02/07/2020 13:44:Gia Tipton RNC) 58b. Vacuum - Unsuccessful A: N/A (02/07/2020 13:44:Gia Tipton, RNC) 58c. Presentation at 58c. Presentation at - A : Vertex (02/07/2020 13:44:Gia [place]avance, RNC) 58c. Presentation at - A : N/A (02/07/2020 13:44:Gia Bellavance, RNC) 58c. Presentation at - A : Cephalic (02/07/2020 13:44:Gia Bellavance, RNC) Final Route and Method of Del 58d. Baby A Route/Delivery: Vaginal (05/10/2020 20:13:Gia Bellavance, RNC) 58e. Trial of Labor Attempted: No (02/07/2020 13:44:Gia Bellavance, RNC) 58e. Trial of Labor Attempted A: N/A (02/07/2020 13:44:Gia Bellavance, RNC) 58e. Trial of Labor Attempted B: N/A (02/07/2020 13:44:Gia Bellavance, RNC) Maternal Morbidity 59b. 3rd or 4th Degree Lacs: None (02/07/2020 13:44:Gia Bellavance, RNC) 59b. 3rd or 4th Degree Lacs: N/A (02/07/2020 13:44:Rosie Madsen, RN) Birthweight Baby A: 2800 (02/07/2020 13:44:Luz Marina Ac RN) 60a. Pounds : 6 (02/07/2020 13:44:QS system process) 60b. Ounces: 3 (02/07/2020 13:44:QS system process) 61. GA at Delivery Baby A: 37.4 (02/07/2020 13:44:KAIN Bartholomew) : Early Term- 37- 38.6 Weeks (02/07/2020 13:44:QS system process) 62a. 5 Minute Baby A: 9 (02/07/2020 13:44:QS system process)
[2020-05-11] MEDS: IBUPROFEN 800 MG TABLET PO SCH ×3 (05:49→21:22)
[2020-05-11 07:14] LABS: HEMATOCRIT 27.1 % (36.0-47.0); HEMOGLOBIN 8.8 g/dL (12.0-15.5); MEAN CORPUSCULAR HEMOGLOBIN 23.1 pg (27.0-33.4); MEAN CORPUSCULAR HGB CONC 32.4 g/dL (32.0-36.0); MEAN CORPUSCULAR VOLUME 71 fl (80-97); PLATELET COUNT 286 10^3/uL (150-450); RED BLOOD COUNT 3.79 10^6/uL (3.72-5.28); RED CELL DISTRIBUTION WIDTH 17.2 % (11.5-14.0); WHITE BLOOD COUNT 19.7 10^3/uL (4.0-10.5)
[2020-05-11] MEDS: FAMOTIDINE 20 MG TABLET PO SCH ×2 (10:09→21:22)
[2020-05-11] MEDS: PRENATAL VITAMIN W DHA CAPSULE PO SCH (10:10)
[2020-05-11] MEDS: SENNOSIDES/DOCUSATE 8.6-50 MG 1 EACH TABLET PO SCH (10:10)
[2020-05-11] MEDS: FERROUS SULFATE 325 MG TABLET PO SCH ×2 (10:10→18:09)
[2020-05-11] MEDS: DOCUSATE SODIUM 100 MG CAPSULE PO SCH ×2 (10:10→18:09)
--- NOTE | 2020-05-11 15:48 | PDOC PROGRESS REPORT ---
Subjective-OB Progress Note for:: 05/11/20 Subjective: reports bleeding slowing, pain controlled with current meds. denies needs Physical Exam (OB) Vital Signs: Temp Pulse Resp BP Pulse Ox 98.1 F 69 16 107/70 100 05/11/20 08:10 05/11/20 07:53 05/11/20 07:53 05/11/20 07:53 05/11/20 07:53 Intake & Output 05/10/20 05/11/20 05/12/20 06:59 06:59 06:59 Weight 51.4 kg - Maternal Morbidity 59. Maternal Morbidity (serious complications experinced by the mother associated with labor and delivery: None of the above - Abdomen Description: Soft Hernia Present: No Fundal Description: Firm, Midline Fundal Height: u/3 - u/4 - Abdominal Distension: No distension Tenderness: Nontender - Extremities Lower extremities: Derian's sign - neg Calf: Normal, Nontender Objective-Diagnostic Laboratory: 05/11/20 06:17 05/10/20 05/10/20 05/11/20 17:06 17:06 06:17 WBC 19.5 H 19.7 H RBC 4.25 3.79 Hgb 9.7 L 8.8 L Hct 30.7 L 27.1 L MCV 72 L 71 L MCH 22.9 L 23.1 L MCHC 31.7 L 32.4 RDW 17.2 H 17.2 H Plt Count 298 286 Seg Neutrophils % 87.5 H Blood Type B POSITIVE Antibody Screen NEGATIVE Assessment and Plan(PN) - Assessment and Plan (1) Spontaneous onset of labor Is this a current diagnosis for this admission?: Yes (2) Normal vaginal delivery Is this a current diagnosis for this admission?: Yes - Time Spent with Patient Time with patient: Less than 15 minutes Medications reviewed and adjusted accordingly: Yes - Disposition Anticipated Discharge Disposition: Home, Self Care Anticipated Discharge Timeframe: within 24 hours
[2020-05-12] MEDS: IBUPROFEN 800 MG TABLET PO SCH ×2 (05:25→13:43)
[2020-05-12 06:49] LABS: ABSOLUTE EOSINOPHILS # (AUTO) 0.1 10^3/uL (0.0-0.6); ABSOLUTE LYMPHOCYTES (AUTO) 2.3 10^3/uL (0.5-4.7); ABSOLUTE MONOCYTES (AUTO) 1.2 10^3/uL (0.1-1.4); ABSOLUTE NEUT (AUTO) 11.6 10^3/uL (1.7-8.2); BASOPHILS % (AUTO) 0.2 % (0-2); EOSINOPHILS % (AUTO) 0.9 % (0-6); HEMATOCRIT 29.4 % (36.0-47.0); HEMOGLOBIN 9.2 g/dL (12.0-15.5); LYMPHOCYTES % (AUTO) 15.3 % (13-45); MEAN CORPUSCULAR HEMOGLOBIN 22.6 pg (27.0-33.4); MEAN CORPUSCULAR HGB CONC 31.2 g/dL (32.0-36.0); MEAN CORPUSCULAR VOLUME 72 fl (80-97); MONOCYTES % (AUTO) 7.8 % (3-13); PLATELET COUNT 323 10^3/uL (150-450); RED BLOOD COUNT 4.06 10^6/uL (3.72-5.28); RED CELL DISTRIBUTION WIDTH 17.6 % (11.5-14.0); SEGMENTED NEUTROPHILS % (AUTO) 75.8 % (42-78); TOTAL CELLS COUNTED % (AUTO) 100 %; WHITE BLOOD COUNT 15.3 10^3/uL (4.0-10.5)
[2020-05-12 08:31] VITALS: BP 103/66
[2020-05-12] MEDS: FAMOTIDINE 20 MG TABLET PO SCH (10:30)
[2020-05-12] MEDS: SENNOSIDES/DOCUSATE 8.6-50 MG 1 EACH TABLET PO SCH (10:30)
[2020-05-12] MEDS: DOCUSATE SODIUM 100 MG CAPSULE PO SCH (10:30)
[2020-05-12] MEDS: FERROUS SULFATE 325 MG TABLET PO SCH (10:30)
[2020-05-12] MEDS: PRENATAL VITAMIN W DHA CAPSULE PO SCH (10:30)
--- NOTE | 2020-05-12 11:45 | PDOC DISCHARGE SUMMARY ---
Impression - Admit/DC Date/PCP Admission Date/Primary Care Provider: 05/10/20 18:51 GOOD WILKERSON MD Discharge Date: 05/12/20 - Discharge Diagnosis (1) Spontaneous onset of labor Is this a current diagnosis for this admission?: Yes (2) Normal vaginal delivery Is this a current diagnosis for this admission?: Yes - Additional Information Discharge Diet: Regular Discharge Activity: Balance Activity w/Rest, Pelvic Rest Referrals: GOOD WILKERSON MD [Primary Care Provider] - Prescriptions: Ibuprofen [Motrin 800 mg Tablet] 800 mg PO Q8HP PRN #60 tablet PRN Reason: Home Medications: No122/Iron/Folic Acid [ Multi Tablet] 1 tab PO DAILY 02/07/20 Ibuprofen [Motrin 800 mg Tablet] 800 mg PO Q8HP PRN #60 tablet 05/12/20 Hospital Course 59. Maternal Morbidity (serious complications experinced by the mother associated with labor and delivery: None of the above Results Laboratory Results: WBC 15.3 10^3/uL (4.0-10.5) H 05/12/20 06:22 RBC 4.06 10^6/uL (3.72-5.28) 05/12/20 06:22 Hgb 9.2 g/dL (12.0-15.5) L 05/12/20 06:22 Hct 29.4 % (36.0-47.0) L 05/12/20 06:22 MCV 72 fl (80-97) L 05/12/20 06:22 MCH 22.6 pg (27.0-33.4) L 05/12/20 06:22 MCHC 31.2 g/dL (32.0-36.0) L 05/12/20 06:22 RDW 17.6 % (11.5-14.0) H 05/12/20 06:22 Plt Count 323 10^3/uL (150-450) 05/12/20 06:22 Lymph % (Auto) 15.3 % (13-45) 05/12/20 06:22 [place] % (Auto) 7.8 % (3-13) 05/12/20 06:22 Eos % (Auto) 0.9 % (0-6) 05/12/20 06:22 Baso % (Auto) 0.2 % (0-2) 05/12/20 06:22 Absolute Neuts (auto) 11.6 10^3/uL (1.7-8.2) H 05/12/20 06:22 Absolute Lymphs (auto) 2.3 10^3/uL (0.5-4.7) 05/12/20 06:22 Absolute Monos (auto) 1.2 10^3/uL (0.1-1.4) 05/12/20 06:22 Absolute Eos (auto) 0.1 10^3/uL (0.0-0.6) 05/12/20 06:22 Absolute Basos (auto) 0.0 10^3/uL (0.0-0.2) 05/12/20 06:22 Seg Neutrophils % 75.8 % (42-78) 05/12/20 06:22 Urine Color YELLOW 05/10/20 11:50 Urine Appearance SLIGHTLY-CLOUDY 05/10/20 11:50 Urine pH 7.0 (5.0-9.0) 05/10/20 11:50 Ur Specific [place] 1.014 05/10/20 11:50 Urine Protein NEGATIVE mg/dL (NEGATIVE) 05/10/20 11:50 Urine Glucose (UA) NEGATIVE mg/dL (NEGATIVE) 05/10/20 11:50 Urine Ketones TRACE mg/dL (NEGATIVE) H 05/10/20 11:50 Urine Blood NEGATIVE (NEGATIVE) 05/10/20 11:50 Urine Nitrite NEGATIVE (NEGATIVE) 05/10/20 11:50 Urine Bilirubin NEGATIVE (NEGATIVE) 05/10/20 11:50 Urine Urobilinogen NEGATIVE mg/dL (<2.0) 05/10/20 11:50 Ur Leukocyte Esterase SMALL (NEGATIVE) H 05/10/20 11:50 Urine Ascorbic Acid NEGATIVE (NEGATIVE) 05/10/20 11:50 Urine Opiates Screen NEGATIVE 05/10/20 11:50 Urine Methadone Screen NEGATIVE 05/10/20 11:50 Ur Barbiturates Screen NEGATIVE 05/10/20 11:50 Ur Phencyclidine Scrn NEGATIVE 05/10/20 11:50 Ur Amphetamines Screen NEGATIVE 05/10/20 11:50 U Benzodiazepines Scrn NEGATIVE 05/10/20 11:50 Urine Cocaine Screen NEGATIVE 05/10/20 11:50 U Marijuana (THC) Screen UNCONFIRMED POSITIVE 05/10/20 11:50 RPR NONREACTIVE (NONREACTIVE) 05/10/20 17:06 Blood Type B POSITIVE 05/10/20 17:06 Antibody Screen NEGATIVE 05/10/20 17:06 Plan Plan of Treatment: follow up in 4 weeks at [facility] for post check
== END 2020-05-12 13:50 | disposition home or self-care (01) | DRG 807 ==
LOC: EEVIPCON 11:44 → LC 11:44 → EEVIPCON 18:51 → LR 18:51 → 2S 22:17
PROVIDERS: ADMIT Obstetrics & Gynecology Gynecology; ATTEND Obstetrics & Gynecology Gynecology
PROC: 10E0XZZ Delivery of Products of Conception, External Approach (ICD-10-PCS; principal; 2020-05-10)
DX: O99.324 Drug use complicating childbirth (principal); Z37.0 Single live birth; F12.90 Cannabis use, unspecified, uncomplicated; O99.824 Streptococcus B carrier state complicating childbirth; O99.344 Other mental disorders complicating childbirth; F41.9 Anxiety disorder, unspecified; F42.9 Obsessive-compulsive disorder, unspecified; Z87.891 Personal history of nicotine dependence; Z3A.37 37 weeks gestation of pregnancy
CPT/HCPCS: 1967; 36415; 80307; 80349; 81005; 85025; 85027; 86592; 86850; 86900; 86901; 94760; G0480; J2540; J2550; J2590; J2795; J3010; J3490; J7060